=== PATIENT | male | born 1950 | race Caucasian/White ===

== ENCOUNTER 2016-08-08 17:23 | Inpatient (IN) | payer OTHER ==
[~2016-08-08] VITALS: Ht 180.3 cm; Wt 78.6 kg
[~2016-08-08 17:23] MED LIST: ADVAIR HFA120 INHALA IH; ALDACTAZIDE 251 EACH PO; ALKA-SELTZER P1 EAC7 PO; ALTACE10 MG PO; AMARYL1 MG PO; AMARYL2 MG PO; ASPIR 8181 M1 PO; ASPIR-TRIN325 M1 PO; ASPIRIN E.C.81 M1 PO; CARDIZEM CD,CA180 MG PO; CARTIA XT180 MG PO; CEFDINIR300 MG PO; CENTRUM SILVER1 EAC3 PO; CILOSTAZOL100 MG PO; CRESTOR20 MG PO; CRESTOR5 MG PO; CYANOCOBALAM1000 MCG PO; DIOVAN320 MG PO; DUONEB 2.5-0.5 M3 ML AEROSOL; ELIQUIS5 MG PO; ENDOCET 5-3251 EACH PO; EXFORGE 10/31 TABLET PO; FENOFIBRATE160 M1 PO; FISH OIL 1,2001 EAC4 PO; FUROSEMIDE40 MG PO; GABAPENTIN100 MG PO; GABAPENTIN300 MG PO; GLIMEPIRIDE1 MG PO; GLIPIZIDE5 MG PO; HYDROCORTISONE25 MG PO; IRBESARTAN300 MG PO; IRON325 MG PO; KLOR-CON M2020 MEQ PO; LEVEMIR FL100 UNIT/1 SC; LEVEMIR100 UNIT/2 SC; LEVOTHYROXINE100 MCG PO; LEVOTHYROXINE50 MCG PO; LISINOPRIL2.5 MG PO; LOPRESSOR100 M1 PO; LOVAZA1 GM PO; LOW DOSE ASPIRI81 M2 PO; METFORMIN HCL500 MG PO; METOLAZONE2.5 MG PO; METOPROLOL SUC100 MG PO; METOPROLOL TAR100 MG PO; MICRO-K8 ME2 PO; MULTIVITAMIN1 EAC2 PO; NIASPAN,SLO-NI500 MG PO; NIASPAN500 MG PO; PACERONE200 MG PO; PANTOPRAZOLE SO40 MG PO; PLAVIX75 MG PO; PLETAL100 MG PO; PLETAL50 MG PO; POTASSIUM CHLO10 MEQ PO; POTASSIUM CHLOR8 ME3 PO; PREDNISONE10 MG PO; PROTONIX40 MG PO; Pletal PO; RAMIPRIL10 MG PO; RANITIDINE HCL150 MG PO; REQUIP1 MG PO; ROPINIROLE HCL1 MG PO; SPIRIVA RESPIMAT4 GM IH; SPIRONOLACT/HC1 EACH PO; SPIRONOLACTONE25 MG PO; TOPROL XL100 MG PO; TOPROL XL200 MG PO; TYLENOL EXTRA500 MG PO; TYLENOL REGULA325 MG PO; WARFARIN SODIUM2 MG PO; WARFARIN SODIUM5 MG PO
[2016-08-08 18:52] LABS: EOSINOPHIL COUNT 0.1 K/uL (0-0.3); HEMATOCRIT 36.6 % (38.0-50.0); IMMATURE GRANULOCYTE (%) 0.5 % (0.0-0.7); INSTRUMENT ABS NEUTROPHIL CT 3.1 K/uL; LYMPHOCYTE COUNT 0.9 K/uL (1.0-2.8); MCH 32.3 PG (29.0-34.0); MCHC 31.7 G/DL (30.0-36.0); MCV 101.9 FL (86-99); MEAN PLAT.VOLUME 8.8 uM^3 (9.0-12.4); MONOCYTE (%) 7.7 % (3-12); MONOCYTE COUNT 0.3 K/uL (0-0.8); NEUTROPHIL (%) 68.9 % (45-76); NEUTROPHIL COUNT 3.1 K/uL (1.8-6.4); PLATELET COUNT 79 K/uL (156-360); RBC DIS.WIDTH-CV 13.4 % (11.8-14.6); RBC DIS.WIDTH-SD 50.9 % (39-53); RED BLOOD COUNT 3.59 M/uL (4.00-5.50); WHITE BLOOD COUNT 4.4 K/uL (4.1-10.2)
[2016-08-08 19:08] LABS: CHLORIDE 96 mEq/L (99-109); POTASSIUM 3.4 mEq/L (3.7-5.4); SODIUM 139 mEq/L (136-147)
[2016-08-08 19:10] LABS: GLUCOSE 118 mg/dL (70-99)
[2016-08-08 19:11] LABS: ANION GAP 14 MEQ/L (2-14)
[2016-08-08 19:12] LABS: TOTAL BILIRUBIN 0.9 mg/dL (0.0-1.0)
[2016-08-08 19:13] LABS: ALKALINE PHOSPHATASE 54 IU/L (3-129)
[2016-08-08 19:14] LABS: GFR ESTIMATE (CALCULATED) 46 mL/min/
[2016-08-08 19:15] LABS: UREA NITROGEN (BUN) 40 mg/dL (9-23)
[2016-08-08 19:22] LABS: TROP-I INTERPRETATION NEGATIVE; TROPONIN-I 0.01 ng/mL (0.0-0.30)
[2016-08-08] MEDS ORDERED: PROTONIX40 MG PO (23:04)
[2016-08-08] MEDS ORDERED: GLIMEPIRIDE1 MG PO (23:05)
[2016-08-08] MEDS ORDERED: FUROSEMIDE40 MG PO (23:05)
[2016-08-08] MEDS ORDERED: ELIQUIS5 MG PO (23:05)
[2016-08-08] MEDS ORDERED: FISH OIL 1,2001 EAC4 PO (23:06)
[2016-08-08] MEDS ORDERED: IRON325 M1 PO (23:06)
[2016-08-08] MEDS ORDERED: LOPRESSOR100 M1 PO (23:06)
[2016-08-08] MEDS ORDERED: POTASSIUM CHLO20 MEQ PO ×2 (23:07→23:08)
[2016-08-08] MEDS ORDERED: SPIRIVA1 INHALATI IH (23:09)
[2016-08-08] MEDS ORDERED: ADVAIR HFA120 INHALA IH (23:09)
[2016-08-08] MEDS ORDERED: VENTOLIN HFA18 GM IH (23:10)
[2016-08-08] MEDS ORDERED: DUONEB 2.5-0.5 M3 ML AEROSOL ×2 (23:10)
[2016-08-08] MEDS ORDERED: METOLAZONE2.5 MG PO (23:11)
[2016-08-08 23:41] VITALS: BP 131/65
[2016-08-09] VITALS (7 sets, daily range): BP systolic 114–146; BP diastolic 62–83
[2016-08-09 06:45] LABS: HEMATOCRIT 36.9 % (38.0-50.0); MCH 32.1 PG (29.0-34.0); MCHC 31.7 G/DL (30.0-36.0); MCV 101.4 FL (86-99); MEAN PLAT.VOLUME 9.6 uM^3 (9.0-12.4); PLATELET COUNT 74 K/uL (156-360); RBC DIS.WIDTH-CV 13.6 % (11.8-14.6); RBC DIS.WIDTH-SD 51.3 % (39-53); RED BLOOD COUNT 3.64 M/uL (4.00-5.50); WHITE BLOOD COUNT 4.4 K/uL (4.1-10.2)
[2016-08-09 07:18] LABS: ANION GAP 9 MEQ/L (2-14); CHLORIDE 96 MEQ/L (99-109); GFR ESTIMATE (CALCULATED) 54 mL/min/; GLUCOSE 139 mg/dL (70-99); POTASSIUM 3.2 MEQ/L (3.7-5.4); SAMPLE HEMOLYSIS CHECK 0; SAMPLE ICTERIC CHECK 0; SAMPLE LIPEMIA CHECK 0; SODIUM 141 MEQ/L (136-147); UREA NITROGEN (BUN) 35 mg/dL (9-23)
[2016-08-09 17:58] LABS: POINT-OF-CARE USER ID 612031313
[2016-08-09 21:31] LABS: POINT-OF-CARE METER ID UU14188625
[2016-08-10] VITALS: BP 111/69
[2016-08-10 08:03] LABS: POINT-OF-CARE METER ID UU14174225; POINT-OF-CARE USER ID 612031313
[2016-08-10 08:43] VITALS: BP 130/64
[2016-08-10 08:46] LABS: HEMATOCRIT 39.5 % (38.0-50.0); MCH 31.6 PG (29.0-34.0); MCHC 31.4 G/DL (30.0-36.0); MCV 100.8 FL (86-99); MEAN PLAT.VOLUME 9.7 uM^3 (9.0-12.4); PLATELET COUNT 86 K/uL (156-360); RBC DIS.WIDTH-CV 13.5 % (11.8-14.6); RED BLOOD COUNT 3.92 M/uL (4.00-5.50); WHITE BLOOD COUNT 5.1 K/uL (4.1-10.2)
[2016-08-10 09:03] LABS: ANION GAP 11 MEQ/L (2-14); CHLORIDE 100 MEQ/L (99-109); GFR ESTIMATE (CALCULATED) > 59 mL/min/; GLUCOSE 130 mg/dL (70-99); POTASSIUM 3.6 MEQ/L (3.7-5.4); SAMPLE HEMOLYSIS CHECK 0; SAMPLE ICTERIC CHECK 0; SAMPLE LIPEMIA CHECK 0; SODIUM 141 MEQ/L (136-147); UREA NITROGEN (BUN) 28 mg/dL (9-23)
[2016-08-10 15:50] LABS: POINT-OF-CARE METER ID UU14174225
[2016-08-10 16:00] VITALS: BP 139/66
[2016-08-10 23:36] VITALS: BP 117/76
[2016-08-11 06:54] LABS: HEMATOCRIT 35.7 % (38.0-50.0); MCH 31.4 PG (29.0-34.0); MCHC 30.8 G/DL (30.0-36.0); MEAN PLAT.VOLUME 9.1 uM^3 (9.0-12.4); PLATELET COUNT 80 K/uL (156-360); RBC DIS.WIDTH-CV 13.8 % (11.8-14.6); RBC DIS.WIDTH-SD 52.2 % (39-53)
[2016-08-11 07:20] LABS: ANION GAP 6 MEQ/L (2-14); CHLORIDE 101 MEQ/L (99-109); GFR ESTIMATE (CALCULATED) > 59 mL/min/; GLUCOSE 146 mg/dL (70-99); SAMPLE HEMOLYSIS CHECK 0; SAMPLE ICTERIC CHECK 0; SAMPLE LIPEMIA CHECK 0; SODIUM 140 MEQ/L (136-147); UREA NITROGEN (BUN) 23 mg/dL (9-23)
[2016-08-11 08:00] VITALS: BP 123/63
[2016-08-11] MEDS ORDERED: SPIRONOLACTONE25 MG PO (11:46)
[2016-08-11] MEDS ORDERED: LOPRESSOR100 M1 PO (11:46)
[2016-08-11] MEDS ORDERED: POTASSIUM CHLO20 MEQ PO (11:46)
[2016-08-11] MEDS ORDERED: BUMETANIDE1 MG PO (11:53)
== END 2016-08-11 14:50 | disposition home health service (06) | DRG 291 ==
LOC: EME 17:23 → EDOF 21:37 → 5SOUTH 21:37
PROVIDERS: Emergency Medicine; Internal Medicine; Physician Assistant
DX: I11.0 Hypertensive heart disease with heart failure (principal); I50.33 Acute on chronic diastolic (congestive) heart failure; J44.1 Chronic obstructive pulmonary disease with (acute) exacerbation; J96.21 Acute and chronic respiratory failure with hypoxia; N17.9 Acute kidney failure, unspecified; E87.6 Hypokalemia; T50.2X5A Adverse effect of carbonic-anhydrase inhibitors, benzothiadiazides and other diuretics, initial encounter; E11.9 Type 2 diabetes mellitus without complications; I25.10 Atherosclerotic heart disease of native coronary artery without angina pectoris; E03.9 Hypothyroidism, unspecified; D64.9 Anemia, unspecified; E78.5 Hyperlipidemia, unspecified; I48.2 Chronic atrial fibrillation; Z99.81 Dependence on supplemental oxygen; Z95.2 Presence of prosthetic heart valve; Z87.891 Personal history of nicotine dependence; Z79.01 Long term (current) use of anticoagulants; Z95.1 Presence of aortocoronary bypass graft
CPT/HCPCS: 71020; 80048; 80053; 81003; 82948; 83735; 83880; 84443; 84484; 85025; 85027; 93005; 93306; 94640; 94640 76; 94799; 99202; 99281; 99285; J1644; J1815; J1940

== ENCOUNTER 2016-09-07 14:51 | Inpatient (IN) | payer OTHER ==
[~2016-09-07] VITALS: Ht 180.3 cm; Wt 79.8 kg
[~2016-09-07 14:51] MED LIST changes: +BUMETANIDE1 MG PO; +IRON325 M1 PO; +POTASSIUM CHLO20 MEQ PO; +SPIRIVA1 INHALATI IH; +VENTOLIN HFA18 GM IH
[2016-09-07 16:44] LABS: HEMATOCRIT 32.9 % (38.0-50.0); MCH 31.2 PG (29.0-34.0); MCHC 31.9 G/DL (30.0-36.0); MCV 97.6 FL (86-99); MEAN PLAT.VOLUME 9.5 uM^3 (9.0-12.4); PLATELET COUNT 93 K/uL (156-360); RBC DIS.WIDTH-CV 14.5 % (11.8-14.6); RBC DIS.WIDTH-SD 51.7 % (39-53); RED BLOOD COUNT 3.37 M/uL (4.00-5.50); WHITE BLOOD COUNT 5.1 K/uL (4.1-10.2)
[2016-09-07 16:52] LABS: CHLORIDE 97 mEq/L (99-109); POTASSIUM 3.9 mEq/L (3.7-5.4); SODIUM 136 mEq/L (136-147)
[2016-09-07 16:53] LABS: GLUCOSE 198 mg/dL (70-99)
[2016-09-07 16:55] LABS: ANION GAP 13 MEQ/L (2-14)
[2016-09-07 16:57] LABS: GFR ESTIMATE (CALCULATED) 38 mL/min/
[2016-09-07 16:58] LABS: UREA NITROGEN (BUN) 51 mg/dL (9-23)
[2016-09-07 17:03] LABS: TROP-I INTERPRETATION NEGATIVE; TROPONIN-I 0.12 ng/mL (0.0-0.30)
[2016-09-07] MEDS ORDERED: NEURONTIN300 MG PO (17:44)
[2016-09-07] MEDS ORDERED: ALDACTONE25 MG PO (17:49)
[2016-09-07] MEDS ORDERED: BUMEX1 MG PO (17:50)
[2016-09-07 21:16] LABS: D-DIMER ELISA 2.06 mg/L FEU (< 0.57)
[2016-09-07 22:00] VITALS: BP 132/59
[2016-09-07 22:19] LABS: POINT-OF-CARE METER ID UU14174225
[2016-09-07 23:47] VITALS: BP 105/57
[2016-09-08 01:05] LABS: TROP-I INTERPRETATION NEGATIVE; TROPONIN-I 0.13 ng/mL (0.0-0.30)
[2016-09-08 03:39] VITALS: BP 97/55
[2016-09-08 05:58] LABS: HEMATOCRIT 31.9 % (38.0-50.0); MCH 31.1 PG (29.0-34.0); MCV 97.3 FL (86-99); MEAN PLAT.VOLUME 9.3 uM^3 (9.0-12.4); PLATELET COUNT 83 K/uL (156-360); RBC DIS.WIDTH-CV 14.6 % (11.8-14.6); RED BLOOD COUNT 3.28 M/uL (4.00-5.50); WHITE BLOOD COUNT 4.5 K/uL (4.1-10.2)
[2016-09-08 06:25] LABS: ANION GAP 8 MEQ/L (2-14); CHLORIDE 96 MEQ/L (99-109); GFR ESTIMATE (CALCULATED) 38 mL/min/; GLUCOSE 214 mg/dL (70-99); POTASSIUM 3.9 MEQ/L (3.7-5.4); SAMPLE HEMOLYSIS CHECK 0; SAMPLE ICTERIC CHECK 0; SAMPLE LIPEMIA CHECK 0; SODIUM 136 MEQ/L (136-147); UREA NITROGEN (BUN) 53 mg/dL (9-23)
[2016-09-08 07:37] VITALS: BP 109/62
[2016-09-08 08:05] LABS: Estimated Average Glucose 128 mg/dL (70-123); HEMOGLOBIN A1c (GLYCOHEMOGLOB) 6.1 % HGB (Below 5.7)
[2016-09-08 09:31] LABS: TROP-I INTERPRETATION NEGATIVE; TROPONIN-I 0.12 ng/mL (0.0-0.30)
[2016-09-08 09:34] LABS: POINT-OF-CARE METER ID UU14174225
[2016-09-08 13:19] LABS: POINT-OF-CARE METER ID UU14174225
[2016-09-08 15:46] VITALS: BP 108/54
[2016-09-08 15:50] VITALS: BP 103/61
[2016-09-08 20:09] VITALS: BP 110/53
[2016-09-08 21:49] LABS: POINT-OF-CARE METER ID UU14188625
[2016-09-08 23:37] VITALS: BP 100/57
[2016-09-09 03:28] VITALS: BP 112/58
[2016-09-09 07:14] LABS: EOSINOPHIL (%) 1.7 % (0-5); EOSINOPHIL COUNT 0.1 K/uL (0-0.3); HEMATOCRIT 32.3 % (38.0-50.0); IMMATURE GRANULOCYTE (%) 0.6 % (0.0-0.7); INSTRUMENT ABS NEUTROPHIL CT 4.2 K/uL; LYMPHOCYTE COUNT 0.7 K/uL (1.0-2.8); MCH 31.4 PG (29.0-34.0); MCHC 32.2 G/DL (30.0-36.0); MCV 97.6 FL (86-99); MEAN PLAT.VOLUME 9.6 uM^3 (9.0-12.4); MONOCYTE (%) 7.4 % (3-12); MONOCYTE COUNT 0.4 K/uL (0-0.8); NEUTROPHIL (%) 76.6 % (45-76); NEUTROPHIL COUNT 4.2 K/uL (1.8-6.4); PLATELET COUNT 78 K/uL (156-360); RBC DIS.WIDTH-CV 14.6 % (11.8-14.6); RBC DIS.WIDTH-SD 52.3 % (39-53); RED BLOOD COUNT 3.31 M/uL (4.00-5.50); WHITE BLOOD COUNT 5.4 K/uL (4.1-10.2)
[2016-09-09 07:38] LABS: ANION GAP 9 MEQ/L (2-14); CHLORIDE 95 MEQ/L (99-109); GFR ESTIMATE (CALCULATED) 50 mL/min/; GLUCOSE 157 mg/dL (70-99); SAMPLE HEMOLYSIS CHECK 0; SAMPLE ICTERIC CHECK 0; SAMPLE LIPEMIA CHECK 0; SODIUM 133 MEQ/L (136-147); UREA NITROGEN (BUN) 51 mg/dL (9-23); URIC ACID 13.7 mg/dL (3.1-9.2)
[2016-09-09 07:53] LABS: POINT-OF-CARE METER ID UU14188625
[2016-09-09 08:11] VITALS: BP 99/53
[2016-09-09 11:16] VITALS: BP 128/67
[2016-09-09 13:24] VITALS: BP 106/65
[2016-09-09 15:29] VITALS: BP 134/63
[2016-09-09 16:28] LABS: POINT-OF-CARE METER ID UU14188625
[2016-09-09 20:02] VITALS: BP 109/53
[2016-09-09 21:35] LABS: POINT-OF-CARE METER ID UU14174225
[2016-09-10] VITALS (7 sets, daily range): BP systolic 107–142; BP diastolic 57–69
[2016-09-10 07:41] LABS: EOSINOPHIL COUNT 0.1 K/uL (0-0.3); HEMATOCRIT 29.8 % (38.0-50.0); IMMATURE GRANULOCYTE (%) 0.6 % (0.0-0.7); LYMPHOCYTE COUNT 0.6 K/uL (1.0-2.8); MCH 30.6 PG (29.0-34.0); MCHC 31.5 G/DL (30.0-36.0); MCV 97.1 FL (86-99); MEAN PLAT.VOLUME 9.7 uM^3 (9.0-12.4); MONOCYTE (%) 7.3 % (3-12); MONOCYTE COUNT 0.4 K/uL (0-0.8); NEUTROPHIL (%) 78.1 % (45-76); PLATELET COUNT 80 K/uL (156-360); RBC DIS.WIDTH-SD 52.6 % (39-53); RED BLOOD COUNT 3.07 M/uL (4.00-5.50); WHITE BLOOD COUNT 5.1 K/uL (4.1-10.2)
[2016-09-10 08:00] LABS: POINT-OF-CARE METER ID UU14174225
[2016-09-10 08:03] LABS: ANION GAP 10 MEQ/L (2-14); CHLORIDE 95 MEQ/L (99-109); GFR ESTIMATE (CALCULATED) > 59 mL/min/; GLUCOSE 184 mg/dL (70-99); POTASSIUM 3.4 MEQ/L (3.7-5.4); SAMPLE HEMOLYSIS CHECK 0; SAMPLE ICTERIC CHECK 0; SAMPLE LIPEMIA CHECK 0; SODIUM 133 MEQ/L (136-147); UREA NITROGEN (BUN) 43 mg/dL (9-23)
[2016-09-10 11:45] LABS: POINT-OF-CARE METER ID UU14188625
[2016-09-10 16:21] LABS: POINT-OF-CARE METER ID UU14188625
[2016-09-11 04:06] VITALS: BP 131/65
[2016-09-11 07:24] LABS: ANION GAP 10 MEQ/L (2-14); CHLORIDE 94 MEQ/L (99-109); GFR ESTIMATE (CALCULATED) 50 mL/min/; GLUCOSE 182 mg/dL (70-99); POTASSIUM 3.9 MEQ/L (3.7-5.4); SAMPLE HEMOLYSIS CHECK 0; SAMPLE ICTERIC CHECK 0; SAMPLE LIPEMIA CHECK 0; SODIUM 131 MEQ/L (136-147); UREA NITROGEN (BUN) 49 mg/dL (9-23)
[2016-09-11 07:40] LABS: HEMATOCRIT 32.3 % (38.0-50.0); MCH 31.2 PG (29.0-34.0); MCHC 31.9 G/DL (30.0-36.0); MCV 97.9 FL (86-99); MEAN PLAT.VOLUME 9.4 uM^3 (9.0-12.4); PLATELET COUNT 86 K/uL (156-360); RBC DIS.WIDTH-CV 15.4 % (11.8-14.6); RBC DIS.WIDTH-SD 53.3 % (39-53); WHITE BLOOD COUNT 5.8 K/uL (4.1-10.2)
[2016-09-11 08:04] VITALS: BP 125/66
[2016-09-11 10:16] LABS: BASE EXCESS 1.9 mEq/L (-3 to +3); BICARBONATE 26.6 mEq/L (22-26); CARBOXY HGB 2.9 % (0-5); COMMENTS - BLOOD GASES A+C+; METHEMOGLOBIN 1.7 % (0-1.5); PCO2 41 mm Hg (35-45); PO2 60 mm Hg (80-100); SITE LR; pH 7.42 (7.35-7.45)
[2016-09-11 10:17] LABS: DEVICE NCH; O2 FLOW 10 L/MIN
[2016-09-11 11:59] LABS: POINT-OF-CARE METER ID UU14188625
[2016-09-11 12:04] VITALS: BP 127/68
[2016-09-11 16:02] VITALS: BP 118/58
[2016-09-11 16:28] LABS: POINT-OF-CARE METER ID UU14174225
[2016-09-11 20:25] VITALS: BP 140/63
[2016-09-11 21:36] LABS: POINT-OF-CARE METER ID UU14188625
[2016-09-12] VITALS: BP 125/58
[2016-09-12 04:03] VITALS: BP 114/54
[2016-09-12 07:39] LABS: POINT-OF-CARE METER ID UU14174225
[2016-09-12 07:40] LABS: EOSINOPHIL (%) 1.8 % (0-5); EOSINOPHIL COUNT 0.1 K/uL (0-0.3); HEMATOCRIT 34.4 % (38.0-50.0); IMMATURE GRANULOCYTE (%) 0.8 % (0.0-0.7); IMMATURE GRANULOCYTE COUNT 0.1 K/uL; INSTRUMENT ABS NEUTROPHIL CT 4.8 K/uL; LYMPHOCYTE COUNT 0.7 K/uL (1.0-2.8); MCH 31.1 PG (29.0-34.0); MCHC 31.7 G/DL (30.0-36.0); MCV 98.3 FL (86-99); MEAN PLAT.VOLUME 9.4 uM^3 (9.0-12.4); MONOCYTE (%) 7.6 % (3-12); MONOCYTE COUNT 0.5 K/uL (0-0.8); NEUTROPHIL (%) 78.4 % (45-76); NEUTROPHIL COUNT 4.8 K/uL (1.8-6.4); PLATELET COUNT 85 K/uL (156-360); RBC DIS.WIDTH-CV 15.8 % (11.8-14.6); RBC DIS.WIDTH-SD 54.3 % (39-53); WHITE BLOOD COUNT 6.1 K/uL (4.1-10.2)
[2016-09-12 08:03] VITALS: BP 108/58
[2016-09-12 08:04] LABS: ANION GAP 9 MEQ/L (2-14); CHLORIDE 97 MEQ/L (99-109); GFR ESTIMATE (CALCULATED) 54 mL/min/; GLUCOSE 162 mg/dL (70-99); POTASSIUM 3.8 MEQ/L (3.7-5.4); SAMPLE HEMOLYSIS CHECK 0; SAMPLE ICTERIC CHECK 0; SAMPLE LIPEMIA CHECK 0; SODIUM 132 MEQ/L (136-147); UREA NITROGEN (BUN) 48 mg/dL (9-23)
[2016-09-12 11:43] VITALS: BP 107/59
[2016-09-12 16:01] VITALS: BP 125/58
[2016-09-12 16:38] LABS: POINT-OF-CARE METER ID UU14174225
[2016-09-12 19:31] VITALS: BP 132/62
[2016-09-12 21:01] LABS: POINT-OF-CARE METER ID UU14188625
[2016-09-13 00:05] VITALS: BP 114/59
[2016-09-13 04:00] VITALS: BP 126/58
[2016-09-13 06:31] LABS: ANION GAP 11 MEQ/L (2-14); CHLORIDE 96 MEQ/L (99-109); GFR ESTIMATE (CALCULATED) 54 mL/min/; GLUCOSE 176 mg/dL (70-99); POTASSIUM 3.5 MEQ/L (3.7-5.4); SAMPLE HEMOLYSIS CHECK 0; SAMPLE ICTERIC CHECK 0; SAMPLE LIPEMIA CHECK 0; SODIUM 136 MEQ/L (136-147); UREA NITROGEN (BUN) 51 mg/dL (9-23)
[2016-09-13 07:51] VITALS: BP 108/53
[2016-09-13 10:32] LABS: INTER. NORMALIZED RATIO 1.4; PROTHROMBIN TIME 14.5 (9.2-11.2); PTT 32.2 (25-32)
[2016-09-13 11:41] LABS: POINT-OF-CARE METER ID UU14188625
[2016-09-13 12:03] VITALS: BP 105/55
[2016-09-13 15:56] VITALS: BP 124/63
[2016-09-13 16:47] LABS: POINT-OF-CARE METER ID UU14188625
[2016-09-13 20:00] VITALS: BP 116/55
[2016-09-14] VITALS: BP 128/60
[2016-09-14 03:46] VITALS: BP 108/57
[2016-09-14 07:22] LABS: ANION GAP 10 MEQ/L (2-14); CHLORIDE 96 MEQ/L (99-109); GFR ESTIMATE (CALCULATED) 54 mL/min/; GLUCOSE 168 mg/dL (70-99); POTASSIUM 3.7 MEQ/L (3.7-5.4); SAMPLE HEMOLYSIS CHECK 0; SAMPLE ICTERIC CHECK 0; SAMPLE LIPEMIA CHECK 0; SODIUM 135 MEQ/L (136-147); UREA NITROGEN (BUN) 50 mg/dL (9-23)
[2016-09-14 07:29] VITALS: BP 113/57
[2016-09-14 07:33] LABS: POINT-OF-CARE METER ID UU14188625
[2016-09-14 11:25] LABS: TYPE OF FLUID PLEURAL
[2016-09-14 11:54] VITALS: BP 138/84
[2016-09-14 12:38] LABS: BODY FLUID EOSINOPHILS 0 % (0-25); BODY FLUID RBC'S 5000 /MM^3 (0-100); BODY FLUID WBC'S 231 /MM^3 (0-500); MONONUCLEAR WBC'S 73 %; POLYNUCLEAR WBC'S 27 % (0-25)
[2016-09-14 13:19] LABS: BODY FLUID LDH 78 IU/L; BODY FLUID PROTEIN < 3.0 G/DL
[2016-09-14 15:20] VITALS: BP 157/64
[2016-09-14 19:36] VITALS: BP 110/53
[2016-09-15] VITALS: BP 130/64
[2016-09-15 04:00] VITALS: BP 98/57
[2016-09-15 06:01] LABS: ANION GAP 9 MEQ/L (2-14); CHLORIDE 99 MEQ/L (99-109); GFR ESTIMATE (CALCULATED) 54 mL/min/; GLUCOSE 191 mg/dL (70-99); POTASSIUM 3.6 MEQ/L (3.7-5.4); SAMPLE HEMOLYSIS CHECK 0; SAMPLE ICTERIC CHECK 0; SAMPLE LIPEMIA CHECK 0; SODIUM 137 MEQ/L (136-147); UREA NITROGEN (BUN) 50 mg/dL (9-23)
[2016-09-15 07:48] LABS: POINT-OF-CARE METER ID UU14174225
[2016-09-15 07:55] VITALS: BP 125/94
[2016-09-15 11:13] VITALS: BP 137/63
[2016-09-15 11:15] LABS: POINT-OF-CARE METER ID UU14188625
[2016-09-15] MEDS ORDERED: POTASSIUM CHLO20 MEQ PO (12:35)
[2016-09-15] MEDS ORDERED: METOPROLOL TAR100 MG PO (13:43)
[2016-09-15] MEDS ORDERED: METOPROLOL TART25 MG PO ×2 (13:43→13:47)
[2016-09-15 14:39] VITALS: BP 121/56
== END 2016-09-15 15:08 | disposition home or self-care (01) | DRG 291 ==
LOC: EME 14:51 → 5SOUTH 20:11 → EDOF 20:11 → 5SOUTH 21:41
PROVIDERS: Hospitalist; Internal Medicine; Internal Medicine Nephrology
DX: I50.23 Acute on chronic systolic (congestive) heart failure (principal); N17.9 Acute kidney failure, unspecified; D69.6 Thrombocytopenia, unspecified; J90 Pleural effusion, not elsewhere classified; Z79.4 Long term (current) use of insulin; N18.3 Chronic kidney disease, stage 3 (moderate); E03.9 Hypothyroidism, unspecified; D50.9 Iron deficiency anemia, unspecified; I12.9 Hypertensive chronic kidney disease with stage 1 through stage 4 chronic kidney disease, or unspecified chronic kidney disease; E11.9 Type 2 diabetes mellitus without complications; I27.2 Other secondary pulmonary hypertension; I25.5 Ischemic cardiomyopathy; J96.21 Acute and chronic respiratory failure with hypoxia; I25.10 Atherosclerotic heart disease of native coronary artery without angina pectoris; E87.6 Hypokalemia; I48.92 Unspecified atrial flutter; E79.0 Hyperuricemia without signs of inflammatory arthritis and tophaceous disease; R09.02 Hypoxemia; I73.9 Peripheral vascular disease, unspecified; G25.81 Restless legs syndrome; K27.9 Peptic ulcer, site unspecified, unspecified as acute or chronic, without hemorrhage or perforation; Z95.2 Presence of prosthetic heart valve; Z95.1 Presence of aortocoronary bypass graft; Z87.891 Personal history of nicotine dependence; Z99.81 Dependence on supplemental oxygen; R07.9 Chest pain, unspecified
CPT/HCPCS: 36415; 36600; 71010; 71020; 76705; 76770; 78582; 80048; 80069; 82436; 82570; 82803; 82945; 82948; 83036; 83615; 83615 91; 83880; 84133; 84156; 84157; 84300; 84484; 84550; 85025; 85027; 85379; 85610; 85730; 87070; 87075; 87205; 88108; 89051; 93005; 94640; 94640 76; 94760; 94799; 99202; 99281; 99285; A9540; A9567; J1815; J1940

== ENCOUNTER 2016-10-19 22:31 | Inpatient (IN) | payer OTHER ==
[~2016-10-19] VITALS: Ht 175.3 cm; Wt 83.6 kg
[~2016-10-19 22:31] MED LIST changes: +ALDACTONE25 MG PO; +BUMEX1 MG PO; +METOPROLOL TART25 MG PO; +NEURONTIN300 MG PO
[2016-10-19 23:32] LABS: HEMATOCRIT 34.5 % (38.0-50.0); MCH 31.8 PG (29.0-34.0); MCV 102.7 FL (86-99); MEAN PLAT.VOLUME 8.7 uM^3 (9.0-12.4); PLATELET COUNT 70 K/uL (156-360); RBC DIS.WIDTH-CV 18.5 % (11.8-14.6); RBC DIS.WIDTH-SD 70.4 % (39-53); RED BLOOD COUNT 3.36 M/uL (4.00-5.50); WHITE BLOOD COUNT 4.5 K/uL (4.1-10.2)
[2016-10-19 23:37] LABS: BASE EXCESS 13.4 mEq/L (-3 to +3); CARBOXY HGB 2.7 % (0-5); METHEMOGLOBIN 0.7 % (0-1.5); PCO2 45 mm Hg (35-45); PO2 64 mm Hg (80-100)
[2016-10-19 23:39] LABS: BICARBONATE 37.6 mEq/L (22-26); COMMENTS - BLOOD GASES A+C+; DEVICE HHFNC; FI02 60 %; O2 FLOW 40 L/MIN; SITE RR; TOTAL RESP RATE 21 resp/min; pH 7.53 (7.35-7.45)
[2016-10-19 23:40] LABS: CHLORIDE 97 mEq/L (99-109); SODIUM 140 mEq/L (136-147)
[2016-10-19 23:42] LABS: GLUCOSE 143 mg/dL (70-99); POTASSIUM 4.3 mEq/L (3.7-5.4)
[2016-10-19 23:43] LABS: ANION GAP 10 MEQ/L (2-14)
[2016-10-19 23:46] LABS: GFR ESTIMATE (CALCULATED) 38 mL/min/; INTER. NORMALIZED RATIO 1.4; PROTHROMBIN TIME 14.3 (9.2-11.2); PTT 29.9 (25-32); UREA NITROGEN (BUN) 57 mg/dL (9-23)
[2016-10-19 23:56] LABS: TROP-I INTERPRETATION NEGATIVE; TROPONIN-I 0.08 ng/mL (0.0-0.30)
[2016-10-20] MEDS ORDERED: KLOR-CON20 MEQ PO (00:39)
[2016-10-20] MEDS ORDERED: TRAZODONE HCL50 MG PO (00:40)
[2016-10-20] MEDS ORDERED: DIGOXIN125 MCG PO (00:40)
[2016-10-20] MEDS ORDERED: BUMEX2 MG PO ×2 (00:40)
[2016-10-20 04:41] VITALS: BP 109/55
[2016-10-20 04:43] VITALS: BP 109/55
[2016-10-20 06:29] LABS: TROP-I INTERPRETATION NEGATIVE; TROPONIN-I 0.09 ng/mL (0.0-0.30)
[2016-10-20 07:46] VITALS: BP 104/60
[2016-10-20 09:16] LABS: HEMATOCRIT 36.3 % (38.0-50.0); MCH 32.5 PG (29.0-34.0); MCHC 31.1 G/DL (30.0-36.0); MCV 104.3 FL (86-99); MEAN PLAT.VOLUME 9.4 uM^3 (9.0-12.4); PLATELET COUNT 65 K/uL (156-360); RBC DIS.WIDTH-CV 18.6 % (11.8-14.6); RBC DIS.WIDTH-SD 71.3 % (39-53); RED BLOOD COUNT 3.48 M/uL (4.00-5.50); WHITE BLOOD COUNT 4.4 K/uL (4.1-10.2)
[2016-10-20 09:55] LABS: ANION GAP 11 MEQ/L (2-14); CHLORIDE 97 MEQ/L (99-109); GFR ESTIMATE (CALCULATED) 46 mL/min/; SAMPLE HEMOLYSIS CHECK 0; SAMPLE ICTERIC CHECK 0; SAMPLE LIPEMIA CHECK 0; SODIUM 140 MEQ/L (136-147); UREA NITROGEN (BUN) 55 mg/dL (9-23)
[2016-10-20 09:56] LABS: GLUCOSE 105 mg/dL (70-99); POTASSIUM 3.2 MEQ/L (3.7-5.4)
[2016-10-20 11:29] VITALS: BP 101/58
[2016-10-20 11:56] LABS: TROP-I INTERPRETATION NEGATIVE; TROPONIN-I 0.08 ng/mL (0.0-0.30)
[2016-10-20 15:31] VITALS: BP 111/56
[2016-10-20 19:15] VITALS: BP 104/51
[2016-10-21] VITALS (7 sets, daily range): BP systolic 100–114; BP diastolic 51–70
[2016-10-21 06:50] LABS: ANION GAP 9 MEQ/L (2-14); CHLORIDE 96 MEQ/L (99-109); GFR ESTIMATE (CALCULATED) 46 mL/min/; GLUCOSE 100 mg/dL (70-99); POTASSIUM 2.8 MEQ/L (3.7-5.4); SAMPLE HEMOLYSIS CHECK 0; SAMPLE ICTERIC CHECK 0; SAMPLE LIPEMIA CHECK 0; SODIUM 140 MEQ/L (136-147); UREA NITROGEN (BUN) 52 mg/dL (9-23)
[2016-10-21 07:47] LABS: MAGNESIUM 2.1 mg/dl (1.3-2.7)
[2016-10-22 04:32] VITALS: BP 109/55
[2016-10-22 07:43] VITALS: BP 111/55
[2016-10-22 08:12] LABS: HEMATOCRIT 33.5 % (38.0-50.0); MCH 32.1 PG (29.0-34.0); MCV 103.4 FL (86-99); MEAN PLAT.VOLUME 8.7 uM^3 (9.0-12.4); PLATELET COUNT 60 K/uL (156-360); RBC DIS.WIDTH-CV 18.2 % (11.8-14.6); RBC DIS.WIDTH-SD 70.4 % (39-53); RED BLOOD COUNT 3.24 M/uL (4.00-5.50); WHITE BLOOD COUNT 4.7 K/uL (4.1-10.2)
[2016-10-22 08:40] LABS: ANION GAP 10 MEQ/L (2-14); CHLORIDE 97 MEQ/L (99-109); GFR ESTIMATE (CALCULATED) 46 mL/min/; GLUCOSE 117 mg/dL (70-99); SAMPLE HEMOLYSIS CHECK 0; SAMPLE ICTERIC CHECK 0; SAMPLE LIPEMIA CHECK 0; SODIUM 140 MEQ/L (136-147); UREA NITROGEN (BUN) 51 mg/dL (9-23)
[2016-10-22 12:10] VITALS: BP 103/58
[2016-10-22 16:14] VITALS: BP 136/64
[2016-10-22 20:56] VITALS: BP 110/55
[2016-10-23 00:19] VITALS: BP 101/57
[2016-10-23 04:57] VITALS: BP 121/56
[2016-10-23 05:42] LABS: HEMATOCRIT 32.7 % (38.0-50.0); MCH 31.8 PG (29.0-34.0); MCHC 30.9 G/DL (30.0-36.0); MCV 102.8 FL (86-99); MEAN PLAT.VOLUME 8.7 uM^3 (9.0-12.4); PLATELET COUNT 63 K/uL (156-360); RBC DIS.WIDTH-SD 68.6 % (39-53); RED BLOOD COUNT 3.18 M/uL (4.00-5.50); WHITE BLOOD COUNT 3.4 K/uL (4.1-10.2)
[2016-10-23 06:05] LABS: ANION GAP 9 MEQ/L (2-14); CHLORIDE 98 MEQ/L (99-109); GFR ESTIMATE (CALCULATED) 50 mL/min/; GLUCOSE 113 mg/dL (70-99); POTASSIUM 2.9 MEQ/L (3.7-5.4); SAMPLE HEMOLYSIS CHECK 0; SAMPLE ICTERIC CHECK 0; SAMPLE LIPEMIA CHECK 0; SODIUM 141 MEQ/L (136-147); UREA NITROGEN (BUN) 52 mg/dL (9-23)
[2016-10-23 07:14] VITALS: BP 118/62
[2016-10-23 09:53] LABS: POINT-OF-CARE METER ID UU13113698
[2016-10-23] MEDS ORDERED: LASIX80 MG PO (10:21)
[2016-10-23 11:13] VITALS: BP 103/58
[2016-10-23 14:28] LABS: POINT-OF-CARE METER ID UU13113698
== END 2016-10-23 15:21 | disposition home health service (06) | DRG 291 ==
LOC: EME 22:31 → 4EAST 10-20 00:53 → EDOF 10-20 00:53 → 4EAST 10-20 04:16
PROVIDERS: Emergency Medicine; Internal Medicine; Internal Medicine Cardiovascular Disease
PROC: 0W993ZZ Drainage of Right Pleural Cavity, Percutaneous Approach (ICD-10-PCS; principal; 2016-10-21)
DX: I50.23 Acute on chronic systolic (congestive) heart failure (principal); J96.01 Acute respiratory failure with hypoxia; I27.2 Other secondary pulmonary hypertension; J44.9 Chronic obstructive pulmonary disease, unspecified; E11.40 Type 2 diabetes mellitus with diabetic neuropathy, unspecified; I48.2 Chronic atrial fibrillation; D50.9 Iron deficiency anemia, unspecified; I25.10 Atherosclerotic heart disease of native coronary artery without angina pectoris; E03.9 Hypothyroidism, unspecified; N28.9 Disorder of kidney and ureter, unspecified; I25.5 Ischemic cardiomyopathy; K21.9 Gastro-esophageal reflux disease without esophagitis; E78.5 Hyperlipidemia, unspecified; E87.6 Hypokalemia; F32.9 Major depressive disorder, single episode, unspecified; I08.3 Combined rheumatic disorders of mitral, aortic and tricuspid valves; I11.0 Hypertensive heart disease with heart failure; N50.89 Other specified disorders of the male genital organs; I48.92 Unspecified atrial flutter; Z95.1 Presence of aortocoronary bypass graft; Z95.2 Presence of prosthetic heart valve; Z99.81 Dependence on supplemental oxygen; Z87.891 Personal history of nicotine dependence; Z79.01 Long term (current) use of anticoagulants; I25.2 Old myocardial infarction
CPT/HCPCS: 36415; 36600; 71010; 80048; 81003; 82803; 82948; 83605; 83735; 83880; 84132 91; 84484; 85027; 85610; 85730; 87040; 93005; 94640; 94640 76; 94760; 94799; 99202; 99281; 99285; J1815; J1940; J3480

== ENCOUNTER 2016-11-08 11:00 | Inpatient (IN) | payer OTHER ==
[~2016-11-08] VITALS: Ht 180.3 cm; Wt 77.2 kg
[~2016-11-08 11:00] MED LIST changes: +BUMEX2 MG PO; +DIGOXIN125 MCG PO; +KLOR-CON20 MEQ PO; +LASIX80 MG PO; +TRAZODONE HCL50 MG PO
[2016-11-08 12:24] LABS: EOSINOPHIL (%) 1.5 % (0-5); EOSINOPHIL COUNT 0.1 K/uL (0-0.3); HEMATOCRIT 42.6 % (38.0-50.0); IMMATURE GRANULOCYTE (%) 0.7 % (0.0-0.7); IMMATURE GRANULOCYTE COUNT 0.1 K/uL; INSTRUMENT ABS NEUTROPHIL CT 5.3 K/uL; MCH 32.1 PG (29.0-34.0); MCHC 30.3 G/DL (30.0-36.0); MEAN PLAT.VOLUME 9.2 uM^3 (9.0-12.4); MONOCYTE (%) 6.6 % (3-12); MONOCYTE COUNT 0.5 K/uL (0-0.8); NEUTROPHIL (%) 76.5 % (45-76); NEUTROPHIL COUNT 5.3 K/uL (1.8-6.4); PLATELET COUNT 74 K/uL (156-360); RBC DIS.WIDTH-CV 16.9 % (11.8-14.6); RBC DIS.WIDTH-SD 66.1 % (39-53); RED BLOOD COUNT 4.02 M/uL (4.00-5.50); WHITE BLOOD COUNT 6.9 K/uL (4.1-10.2)
[2016-11-08 12:33] LABS: INTER. NORMALIZED RATIO 1.4; PROTHROMBIN TIME 14.6 (9.2-11.2); PTT 29.4 (25-32)
[2016-11-08 12:45] LABS: TROP-I INTERPRETATION NEGATIVE; TROPONIN-I 0.04 ng/mL (0.0-0.30)
[2016-11-08 14:38] LABS: CHLORIDE 107 mEq/L (99-109); SODIUM 142 mEq/L (136-147)
[2016-11-08 14:40] LABS: GLUCOSE 140 mg/dL (70-99)
[2016-11-08 14:42] LABS: ANION GAP 10 MEQ/L (2-14); DIGOXIN 0.5 ng/mL (0.8-2.0); TOTAL BILIRUBIN 1.4 mg/dL (0.0-1.0)
[2016-11-08 14:44] LABS: ALKALINE PHOSPHATASE 68 IU/L (3-129)
[2016-11-08 14:58] LABS: POTASSIUM 6.6 mEq/L (3.7-5.4)
[2016-11-08 15:03] LABS: GFR ESTIMATE (CALCULATED) 43 mL/min/; UREA NITROGEN (BUN) 33 mg/dL (9-23)
[2016-11-08] MEDS ORDERED: LASIX40 MG PO (17:25)
[2016-11-08] MEDS ORDERED: KLOR-CON M2020 MEQ PO (17:27)
[2016-11-08] MEDS ORDERED: SPIRIVA RESPIMAT4 GM IH (17:29)
[2016-11-08] MEDS ORDERED: SPIRONOLACTONE25 MG PO (17:30)
[2016-11-08] MEDS ORDERED: PANTOPRAZOLE SO40 MG PO (17:30)
[2016-11-08 17:43] VITALS: BP 126/61
[2016-11-08 18:36] LABS: TROP-I INTERPRETATION NEGATIVE; TROPONIN-I 0.06 ng/mL (0.0-0.30)
[2016-11-08 19:32] VITALS: BP 112/72
[2016-11-08 23:25] LABS: POINT-OF-CARE METER ID UU13113781
[2016-11-09] VITALS (7 sets, daily range): BP systolic 107–139; BP diastolic 50–68
[2016-11-09 01:21] LABS: TROP-I INTERPRETATION NEGATIVE; TROPONIN-I 0.04 ng/mL (0.0-0.30)
[2016-11-09 06:04] LABS: POINT-OF-CARE METER ID UU13113781
[2016-11-09 13:42] LABS: ANION GAP 8 MEQ/L (2-14); CHLORIDE 101 MEQ/L (99-109); GFR ESTIMATE (CALCULATED) 50 mL/min/; GLUCOSE 94 mg/dL (70-99); MAGNESIUM 2.3 mg/dl (1.3-2.7); POTASSIUM 3.9 MEQ/L (3.7-5.4); SAMPLE HEMOLYSIS CHECK 0; SAMPLE ICTERIC CHECK 0; SAMPLE LIPEMIA CHECK 0; SODIUM 139 MEQ/L (136-147); UREA NITROGEN (BUN) 29 mg/dL (9-23)
[2016-11-09 15:54] LABS: POINT-OF-CARE METER ID UU13113781
[2016-11-09 18:14] LABS: INTER. NORMALIZED RATIO 1.4; PROTHROMBIN TIME 14.2 (9.2-11.2); PTT 27.9 (25-32)
[2016-11-10 03:09] VITALS: BP 104/49
[2016-11-10 07:10] VITALS: BP 128/61
[2016-11-10 07:49] LABS: EOSINOPHIL (%) 1.8 % (0-5); EOSINOPHIL COUNT 0.1 K/uL (0-0.3); HEMATOCRIT 33.1 % (38.0-50.0); IMMATURE GRANULOCYTE (%) 0.5 % (0.0-0.7); INSTRUMENT ABS NEUTROPHIL CT 2.6 K/uL; MCH 32.4 PG (29.0-34.0); MCHC 31.1 G/DL (30.0-36.0); MCV 104.1 FL (86-99); MONOCYTE (%) 8.1 % (3-12); MONOCYTE COUNT 0.3 K/uL (0-0.8); NEUTROPHIL COUNT 2.6 K/uL (1.8-6.4); RBC DIS.WIDTH-CV 16.2 % (11.8-14.6); RBC DIS.WIDTH-SD 62.6 % (39-53); RED BLOOD COUNT 3.18 M/uL (4.00-5.50)
[2016-11-10 07:53] LABS: POINT-OF-CARE METER ID UU13113781
[2016-11-10 07:54] LABS: IMM.PLATELET FRACTION 1.6 (1-7); MEAN PLAT.VOLUME 9.7 uM^3 (9.0-12.4); PLAT.SUFFICIENCY DECREASED
[2016-11-10 08:05] LABS: PLATELET COUNT 50 K/uL (156-360)
[2016-11-10 08:16] LABS: ANION GAP 12 MEQ/L (2-14); CHLORIDE 97 MEQ/L (99-109); POTASSIUM 3.4 MEQ/L (3.7-5.4); SAMPLE HEMOLYSIS CHECK 0; SAMPLE ICTERIC CHECK 0; SAMPLE LIPEMIA CHECK 0; SODIUM 137 MEQ/L (136-147)
[2016-11-10 10:09] LABS: GFR ESTIMATE (CALCULATED) 40 mL/min/; GLUCOSE 113 mg/dL (70-99); UREA NITROGEN (BUN) 32 mg/dL (9-23)
[2016-11-10 12:00] VITALS: BP 104/48
[2016-11-10 16:10] LABS: POINT-OF-CARE METER ID UU14174216
[2016-11-10 16:20] VITALS: BP 119/58
[2016-11-10 19:30] VITALS: BP 145/66
[2016-11-10 21:14] LABS: BASE EXCESS 7.1 mEq/L (-3 to +3); METHEMOGLOBIN 1.8 % (0-1.5); PCO2 46 mm Hg (35-45); pH 7.45 (7.35-7.45)
[2016-11-10 21:15] LABS: PO2 43 mm Hg (80-100); SITE LR
[2016-11-10 21:18] LABS: POINT-OF-CARE METER ID UU14174216
[2016-11-10 21:19] LABS: DEVICE HFNC; O2 FLOW 15 L/MIN; TOTAL RESP RATE 18 resp/min
[2016-11-11] VITALS (8 sets, daily range): BP systolic 103–139; BP diastolic 54–65
[2016-11-11 04:44] LABS: HEMATOCRIT 30.8 % (38.0-50.0); MCH 31.9 PG (29.0-34.0); MCHC 31.2 G/DL (30.0-36.0); MCV 102.3 FL (86-99); RBC DIS.WIDTH-CV 15.9 % (11.8-14.6); RBC DIS.WIDTH-SD 60.7 % (39-53); RED BLOOD COUNT 3.01 M/uL (4.00-5.50); WHITE BLOOD COUNT 3.4 K/uL (4.1-10.2)
[2016-11-11 04:58] LABS: CHLORIDE 101 mEq/L (99-109); SODIUM 138 mEq/L (136-147)
[2016-11-11 05:00] LABS: GLUCOSE 143 mg/dL (70-99)
[2016-11-11 05:01] LABS: ANION GAP 9 MEQ/L (2-14)
[2016-11-11 05:03] LABS: GFR ESTIMATE (CALCULATED) 46 mL/min/
[2016-11-11 05:04] LABS: UREA NITROGEN (BUN) 29 mg/dL (9-23)
[2016-11-11 05:14] LABS: POTASSIUM 4.2 mEq/L (3.7-5.4)
[2016-11-11 05:24] LABS: MEAN PLAT.VOLUME 8.8 uM^3 (9.0-12.4); PLATELET COUNT 43 K/uL (156-360)
[2016-11-11 05:26] LABS: PLAT.SUFFICIENCY VERY DECREASED
[2016-11-11 07:57] LABS: POINT-OF-CARE METER ID UU13113698
[2016-11-11 11:07] LABS: POINT-OF-CARE METER ID UU13113698
[2016-11-11 20:46] LABS: POINT-OF-CARE METER ID UU14174216; POINT-OF-CARE USER ID ENVMNS
[2016-11-12 05:05] VITALS: BP 129/60
[2016-11-12 06:36] LABS: ANION GAP 6 MEQ/L (2-14); CHLORIDE 98 MEQ/L (99-109); GFR ESTIMATE (CALCULATED) 46 mL/min/; GLUCOSE 129 mg/dL (70-99); POTASSIUM 4.5 MEQ/L (3.7-5.4); SAMPLE HEMOLYSIS CHECK 0; SAMPLE ICTERIC CHECK 0; SAMPLE LIPEMIA CHECK 0; SODIUM 135 MEQ/L (136-147); UREA NITROGEN (BUN) 30 mg/dL (9-23)
[2016-11-12 07:42] VITALS: BP 126/63
[2016-11-12 07:48] LABS: POINT-OF-CARE METER ID UU14174216
[2016-11-12 11:38] LABS: POINT-OF-CARE METER ID UU14174216
[2016-11-12 11:47] VITALS: BP 121/57
[2016-11-12 15:46] VITALS: BP 120/55
[2016-11-12 15:54] LABS: POINT-OF-CARE METER ID UU14174216
[2016-11-12 18:33] LABS: BICARBONATE 34.1 mEq/L (22-26); CARBOXY HGB 2.9 % (0-5); COMMENTS - BLOOD GASES A+C+; DEVICE HHFNC; FI02 70 %; METHEMOGLOBIN 1.4 % (0-1.5); O2 FLOW 30 L/MIN; PCO2 55 mm Hg (35-45); PO2 63 mm Hg (80-100); SITE RR; TOTAL RESP RATE 18 resp/min
[2016-11-12 20:48] VITALS: BP 121/83
[2016-11-13 00:12] VITALS: BP 133/63
[2016-11-13 03:53] LABS: MCV 103.6 FL (86-99)
[2016-11-13 03:55] VITALS: BP 131/64
[2016-11-13 04:11] LABS: CHLORIDE 100 mEq/L (99-109); POTASSIUM 5.1 mEq/L (3.7-5.4); SODIUM 136 mEq/L (136-147)
[2016-11-13 04:12] LABS: MAGNESIUM 2.2 mg/dL (1.3-2.7)
[2016-11-13 04:24] LABS: GLUCOSE 149 mg/dL (70-99)
[2016-11-13 04:26] LABS: ANION GAP 9 MEQ/L (2-14)
[2016-11-13 04:28] LABS: GFR ESTIMATE (CALCULATED) 43 mL/min/
[2016-11-13 04:29] LABS: UREA NITROGEN (BUN) 35 mg/dL (9-23)
[2016-11-13 07:00] VITALS: BP 105/63
[2016-11-13 07:52] LABS: MCH 33.7 PG (29.0-34.0); MCHC 32.6 G/DL (30.0-36.0); MCV 103.3 FL (86-99); MEAN PLAT.VOLUME 10.3 uM^3 (9.0-12.4); RBC DIS.WIDTH-CV 15.8 % (11.8-14.6); RBC DIS.WIDTH-SD 60.6 % (39-53); WHITE BLOOD COUNT 3.8 K/uL (4.1-10.2)
[2016-11-13 07:55] LABS: PLATELET COUNT 64 K/uL (156-360)
[2016-11-13 07:57] LABS: POINT-OF-CARE METER ID UU14174216
[2016-11-13 12:57] VITALS: BP 100/58
[2016-11-13 16:40] VITALS: BP 107/64
[2016-11-13 19:17] VITALS: BP 134/84
[2016-11-14] VITALS (7 sets, daily range): BP systolic 111–148; BP diastolic 53–64
[2016-11-14 05:47] LABS: MCH 32.7 PG (29.0-34.0); MCV 105.4 FL (86-99); MEAN PLAT.VOLUME 10.2 uM^3 (9.0-12.4); PLATELET COUNT 62 K/uL (156-360); RBC DIS.WIDTH-CV 15.6 % (11.8-14.6); RBC DIS.WIDTH-SD 61.2 % (39-53); RED BLOOD COUNT 2.94 M/uL (4.00-5.50); WHITE BLOOD COUNT 3.3 K/uL (4.1-10.2)
[2016-11-14 08:10] LABS: POINT-OF-CARE METER ID UU14174216
[2016-11-14 11:33] LABS: ANION GAP 7 MEQ/L (2-14); CHLORIDE 100 MEQ/L (99-109); GFR ESTIMATE (CALCULATED) 54 mL/min/; GLUCOSE 164 mg/dL (70-99); POTASSIUM 4.8 MEQ/L (3.7-5.4); SAMPLE HEMOLYSIS CHECK 0; SAMPLE ICTERIC CHECK 0; SAMPLE LIPEMIA CHECK 0; SODIUM 139 MEQ/L (136-147); UREA NITROGEN (BUN) 34 mg/dL (9-23)
[2016-11-14 11:39] LABS: POINT-OF-CARE METER ID UU13113781
[2016-11-14 16:41] LABS: POINT-OF-CARE METER ID UU13113781
[2016-11-14 20:58] LABS: POINT-OF-CARE METER ID UU14174216
[2016-11-15 00:01] VITALS: BP 112/54
[2016-11-15 04:39] VITALS: BP 136/59
[2016-11-15 05:28] LABS: EOSINOPHIL (%) 1.7 % (0-5); EOSINOPHIL COUNT 0.1 K/uL (0-0.3); HEMATOCRIT 32.8 % (38.0-50.0); IMMATURE GRANULOCYTE (%) 0.3 % (0.0-0.7); INSTRUMENT ABS NEUTROPHIL CT 2.4 K/uL; LYMPHOCYTE COUNT 0.7 K/uL (1.0-2.8); MCH 32.1 PG (29.0-34.0); MCHC 31.1 G/DL (30.0-36.0); MCV 103.1 FL (86-99); MEAN PLAT.VOLUME 9.8 uM^3 (9.0-12.4); MONOCYTE (%) 10.1 % (3-12); MONOCYTE COUNT 0.4 K/uL (0-0.8); NEUTROPHIL (%) 67.8 % (45-76); NEUTROPHIL COUNT 2.4 K/uL (1.8-6.4); PLATELET COUNT 64 K/uL (156-360); RBC DIS.WIDTH-CV 15.2 % (11.8-14.6); RED BLOOD COUNT 3.18 M/uL (4.00-5.50); WHITE BLOOD COUNT 3.6 K/uL (4.1-10.2)
[2016-11-15 05:50] LABS: ALKALINE PHOSPHATASE 53 IU/L (3-129); ANION GAP 8 MEQ/L (2-14); CHLORIDE 99 MEQ/L (99-109); GFR ESTIMATE (CALCULATED) 59 mL/min/; GLUCOSE 149 mg/dL (70-99); POTASSIUM 4.4 MEQ/L (3.7-5.4); SAMPLE HEMOLYSIS CHECK 0; SAMPLE ICTERIC CHECK 0; SAMPLE LIPEMIA CHECK 0; SODIUM 136 MEQ/L (136-147); TOTAL BILIRUBIN 0.8 MG/DL (0.0-1.0); UREA NITROGEN (BUN) 34 mg/dL (9-23)
[2016-11-15 09:00] VITALS: BP 126/66
[2016-11-15 17:15] VITALS: BP 148/67
[2016-11-15 19:17] VITALS: BP 122/59
[2016-11-15 23:17] VITALS: BP 132/62
[2016-11-16 03:06] VITALS: BP 107/58
[2016-11-16 05:47] LABS: EOSINOPHIL (%) 1.4 % (0-5); EOSINOPHIL COUNT 0.1 K/uL (0-0.3); HEMATOCRIT 31.7 % (38.0-50.0); IMMATURE GRANULOCYTE (%) 0.6 % (0.0-0.7); INSTRUMENT ABS NEUTROPHIL CT 2.4 K/uL; LYMPHOCYTE COUNT 0.8 K/uL (1.0-2.8); MCH 32.5 PG (29.0-34.0); MCHC 31.9 G/DL (30.0-36.0); MCV 101.9 FL (86-99); MEAN PLAT.VOLUME 8.9 uM^3 (9.0-12.4); MONOCYTE (%) 8.9 % (3-12); MONOCYTE COUNT 0.3 K/uL (0-0.8); NEUTROPHIL (%) 67.3 % (45-76); NEUTROPHIL COUNT 2.4 K/uL (1.8-6.4); PLATELET COUNT 65 K/uL (156-360); RBC DIS.WIDTH-CV 15.2 % (11.8-14.6); RBC DIS.WIDTH-SD 57.2 % (39-53); RED BLOOD COUNT 3.11 M/uL (4.00-5.50); WHITE BLOOD COUNT 3.5 K/uL (4.1-10.2)
[2016-11-16 06:17] LABS: ALKALINE PHOSPHATASE 55 IU/L (3-129); ANION GAP 7 MEQ/L (2-14); CHLORIDE 100 MEQ/L (99-109); GFR ESTIMATE (CALCULATED) 54 mL/min/; GLUCOSE 137 mg/dL (70-99); POTASSIUM 4.5 MEQ/L (3.7-5.4); SAMPLE HEMOLYSIS CHECK 0; SAMPLE ICTERIC CHECK 0; SAMPLE LIPEMIA CHECK 0; SODIUM 137 MEQ/L (136-147); TOTAL BILIRUBIN 0.8 MG/DL (0.0-1.0); UREA NITROGEN (BUN) 33 mg/dL (9-23)
[2016-11-16 07:11] VITALS: BP 115/51
[2016-11-16 12:02] LABS: POINT-OF-CARE USER ID NUTSLF44
[2016-11-16 12:12] VITALS: BP 118/58
[2016-11-16 15:25] VITALS: BP 110/47
[2016-11-16 17:13] LABS: POINT-OF-CARE USER ID NUTSLF44
[2016-11-16 19:30] VITALS: BP 120/57
[2016-11-16 22:31] VITALS: BP 114/55
[2016-11-17 03:49] VITALS: BP 124/56
[2016-11-17 05:48] LABS: EOSINOPHIL (%) 1.5 % (0-5); EOSINOPHIL COUNT 0.1 K/uL (0-0.3); HEMATOCRIT 30.2 % (38.0-50.0); IMMATURE GRANULOCYTE (%) 0.6 % (0.0-0.7); INSTRUMENT ABS NEUTROPHIL CT 2.3 K/uL; LYMPHOCYTE COUNT 0.7 K/uL (1.0-2.8); MCH 33.3 PG (29.0-34.0); MCHC 32.5 G/DL (30.0-36.0); MCV 102.7 FL (86-99); MEAN PLAT.VOLUME 9.1 uM^3 (9.0-12.4); MONOCYTE COUNT 0.3 K/uL (0-0.8); NEUTROPHIL (%) 69.2 % (45-76); NEUTROPHIL COUNT 2.3 K/uL (1.8-6.4); PLATELET COUNT 62 K/uL (156-360); RBC DIS.WIDTH-CV 15.1 % (11.8-14.6); RBC DIS.WIDTH-SD 55.9 % (39-53); RED BLOOD COUNT 2.94 M/uL (4.00-5.50); WHITE BLOOD COUNT 3.4 K/uL (4.1-10.2)
[2016-11-17 06:13] LABS: ALKALINE PHOSPHATASE 56 IU/L (3-129); ANION GAP 9 MEQ/L (2-14); CHLORIDE 100 MEQ/L (99-109); GFR ESTIMATE (CALCULATED) 54 mL/min/; GLUCOSE 156 mg/dL (70-99); POTASSIUM 4.2 MEQ/L (3.7-5.4); SAMPLE HEMOLYSIS CHECK 0; SAMPLE ICTERIC CHECK 0; SAMPLE LIPEMIA CHECK 0; SODIUM 138 MEQ/L (136-147); TOTAL BILIRUBIN 0.7 MG/DL (0.0-1.0); UREA NITROGEN (BUN) 40 mg/dL (9-23)
[2016-11-17 08:20] VITALS: BP 114/60
[2016-11-17 12:20] VITALS: BP 106/53
[2016-11-17 16:19] VITALS: BP 123/60
[2016-11-17 19:09] VITALS: BP 102/57
[2016-11-17 23:27] VITALS: BP 130/63
[2016-11-18 03:40] VITALS: BP 136/63
[2016-11-18 06:06] LABS: EOSINOPHIL (%) 1.6 % (0-5); EOSINOPHIL COUNT 0.1 K/uL (0-0.3); IMMATURE GRANULOCYTE (%) 0.8 % (0.0-0.7); INSTRUMENT ABS NEUTROPHIL CT 2.6 K/uL; LYMPHOCYTE COUNT 0.7 K/uL (1.0-2.8); MCH 32.7 PG (29.0-34.0); MCHC 31.9 G/DL (30.0-36.0); MCV 102.6 FL (86-99); MEAN PLAT.VOLUME 9.6 uM^3 (9.0-12.4); MONOCYTE (%) 9.3 % (3-12); MONOCYTE COUNT 0.3 K/uL (0-0.8); NEUTROPHIL (%) 69.9 % (45-76); NEUTROPHIL COUNT 2.6 K/uL (1.8-6.4); PLATELET COUNT 71 K/uL (156-360); RBC DIS.WIDTH-SD 56.8 % (39-53); RED BLOOD COUNT 3.12 M/uL (4.00-5.50); WHITE BLOOD COUNT 3.7 K/uL (4.1-10.2)
[2016-11-18 06:26] LABS: ALKALINE PHOSPHATASE 61 IU/L (3-129); ANION GAP 8 MEQ/L (2-14); ANION GAP 9 MEQ/L (2-14); CHLORIDE 99 MEQ/L (99-109); GFR ESTIMATE (CALCULATED) 59 mL/min/; GLUCOSE 143 mg/dL (70-99); GLUCOSE 144 mg/dL (70-99); POTASSIUM 3.8 MEQ/L (3.7-5.4); POTASSIUM 3.9 MEQ/L (3.7-5.4); SAMPLE HEMOLYSIS CHECK 0; SAMPLE ICTERIC CHECK 0; SAMPLE LIPEMIA CHECK 0; SODIUM 138 MEQ/L (136-147); SODIUM 139 MEQ/L (136-147); TOTAL BILIRUBIN 0.8 MG/DL (0.0-1.0); UREA NITROGEN (BUN) 41 mg/dL (9-23)
[2016-11-18 07:11] LABS: DIGOXIN < 0.3 ng/mL (0.8-2.0)
[2016-11-18 08:26] VITALS: BP 106/68
[2016-11-18 12:37] VITALS: BP 156/54
[2016-11-18 16:00] VITALS: BP 117/54
[2016-11-18 20:00] VITALS: BP 106/67
[2016-11-18 21:18] LABS: POINT-OF-CARE METER ID UU14174216; POINT-OF-CARE USER ID ENVMNS
[2016-11-18 23:55] VITALS: BP 107/57
[2016-11-19 03:32] LABS: ADD MIUA? NO; BILIRUBIN NEGATIVE; BLOOD NEGATIVE; COLOR STRAW ((YELLOW)); GLUCOSE (STRIP) NEGATIVE; KETONES NEGATIVE; LEUKOCYTES NEGATIVE; NITRITE NEGATIVE; PROTEIN (STRIP) NEGATIVE; SPECIFIC GRAVITY 1.006 (1.000-1.030); UROBILINOGEN 0.2 MG/DL (0.2-1.0)
[2016-11-19 04:00] VITALS: BP 106/56
[2016-11-19 07:39] VITALS: BP 115/57
[2016-11-19 07:57] LABS: MAGNESIUM 2.3 mg/dl (1.3-2.7)
[2016-11-19 08:08] LABS: ANION GAP 8 MEQ/L (2-14); CHLORIDE 93 MEQ/L (99-109); GFR ESTIMATE (CALCULATED) 59 mL/min/; GLUCOSE 157 mg/dL (70-99); POTASSIUM 3.8 MEQ/L (3.7-5.4); SAMPLE HEMOLYSIS CHECK 0; SAMPLE ICTERIC CHECK 0; SAMPLE LIPEMIA CHECK 0; UREA NITROGEN (BUN) 42 mg/dL (9-23)
[2016-11-19 08:09] LABS: SODIUM 132 MEQ/L (136-147)
[2016-11-19 12:31] VITALS: BP 118/69
[2016-11-19 16:42] LABS: POINT-OF-CARE METER ID UU14174216
[2016-11-19 17:08] VITALS: BP 142/65
[2016-11-19 20:00] VITALS: BP 107/53
[2016-11-20 00:16] VITALS: BP 110/59
[2016-11-20 04:25] VITALS: BP 118/72
[2016-11-20 05:49] LABS: EOSINOPHIL (%) 1.5 % (0-5); EOSINOPHIL COUNT 0.1 K/uL (0-0.3); HEMATOCRIT 31.5 % (38.0-50.0); IMMATURE GRANULOCYTE (%) 0.5 % (0.0-0.7); INSTRUMENT ABS NEUTROPHIL CT 2.7 K/uL; LYMPHOCYTE COUNT 0.8 K/uL (1.0-2.8); MCHC 32.7 G/DL (30.0-36.0); MEAN PLAT.VOLUME 9.5 uM^3 (9.0-12.4); MONOCYTE (%) 8.2 % (3-12); MONOCYTE COUNT 0.3 K/uL (0-0.8); NEUTROPHIL (%) 68.3 % (45-76); NEUTROPHIL COUNT 2.7 K/uL (1.8-6.4); PLATELET COUNT 77 K/uL (156-360); RBC DIS.WIDTH-CV 14.9 % (11.8-14.6); RBC DIS.WIDTH-SD 55.4 % (39-53); RED BLOOD COUNT 3.12 M/uL (4.00-5.50); WHITE BLOOD COUNT 3.9 K/uL (4.1-10.2)
[2016-11-20 06:05] LABS: ALKALINE PHOSPHATASE 68 IU/L (3-129); ANION GAP 7 MEQ/L (2-14); CHLORIDE 93 MEQ/L (99-109); GFR ESTIMATE (CALCULATED) 59 mL/min/; GLUCOSE 170 mg/dL (70-99); POTASSIUM 3.9 MEQ/L (3.7-5.4); SAMPLE HEMOLYSIS CHECK 0; SAMPLE ICTERIC CHECK 0; SAMPLE LIPEMIA CHECK 0; SODIUM 134 MEQ/L (136-147); TOTAL BILIRUBIN 0.8 MG/DL (0.0-1.0); UREA NITROGEN (BUN) 45 mg/dL (9-23)
[2016-11-20 07:39] VITALS: BP 117/62
[2016-11-20 07:43] LABS: POINT-OF-CARE METER ID UU13113781
[2016-11-20 10:50] LABS: POINT-OF-CARE METER ID UU13113781
[2016-11-20 11:17] VITALS: BP 107/49
[2016-11-20] MEDS ORDERED: FENTANYL1 EAC4 TD (11:59)
[2016-11-20] MEDS ORDERED: ENDOCET 5-3251 EACH PO (11:59)
[2016-11-20] MEDS ORDERED: SPIRONOLACTONE50 MG PO (11:59)
[2016-11-20] MEDS ORDERED: BUMETANIDE1 MG PO (11:59)
[2016-11-20] MEDS ORDERED: CILOSTAZOL100 MG PO (11:59)
[2016-11-20] MEDS ORDERED: METOPROLOL TAR100 MG PO (11:59)
== END 2016-11-20 13:25 | disposition home health service (06) | DRG 291 ==
LOC: EME → EDBD 11:00 → EME 11:00 → EDOF 16:20 → 4EAST 16:20
PROVIDERS: Emergency Medicine; Hospitalist; Internal Medicine; Internal Medicine Nephrology; Internal Medicine Pulmonary Disease; Physician Assistant Medical
PROC: 0W9930Z Drainage of Right Pleural Cavity with Drainage Device, Percutaneous Approach (ICD-10-PCS; principal; 2016-11-11)
PROC: 30233R1 Transfusion of Nonautologous Platelets into Peripheral Vein, Percutaneous Approach (ICD-10-PCS; 2016-11-11)
DX: I13.0 Hypertensive heart and chronic kidney disease with heart failure and stage 1 through stage 4 chronic kidney disease, or unspecified chronic kidney disease (principal); I46.9 Cardiac arrest, cause unspecified; D61.818 Other pancytopenia; D69.59 Other secondary thrombocytopenia; E03.9 Hypothyroidism, unspecified; E11.22 Type 2 diabetes mellitus with diabetic chronic kidney disease; E11.42 Type 2 diabetes mellitus with diabetic polyneuropathy; E78.5 Hyperlipidemia, unspecified; E87.5 Hyperkalemia; I25.10 Atherosclerotic heart disease of native coronary artery without angina pectoris; I25.2 Old myocardial infarction; I25.5 Ischemic cardiomyopathy; I27.2 Other secondary pulmonary hypertension; I27.81 Cor pulmonale (chronic); I48.2 Chronic atrial fibrillation; I50.43 Acute on chronic combined systolic (congestive) and diastolic (congestive) heart failure; I95.1 Orthostatic hypotension; J44.1 Chronic obstructive pulmonary disease with (acute) exacerbation; J96.21 Acute and chronic respiratory failure with hypoxia; K21.9 Gastro-esophageal reflux disease without esophagitis; F32.9 Major depressive disorder, single episode, unspecified; K59.00 Constipation, unspecified; K74.60 Unspecified cirrhosis of liver; N17.0 Acute kidney failure with tubular necrosis; N18.3 Chronic kidney disease, stage 3 (moderate); Z79.01 Long term (current) use of anticoagulants; Z79.84 Long term (current) use of oral hypoglycemic drugs; Z86.711 Personal history of pulmonary embolism; Z87.891 Personal history of nicotine dependence; Z95.1 Presence of aortocoronary bypass graft; Z95.3 Presence of xenogenic heart valve; Z99.81 Dependence on supplemental oxygen; B19.20 Unspecified viral hepatitis C without hepatic coma; R00.1 Bradycardia, unspecified; J84.10 Pulmonary fibrosis, unspecified; R33.9 Retention of urine, unspecified
CPT/HCPCS: 36600; 49083; 71010; 76705; 76770; 80048; 80053; 80069; 80162; 81003; 82150 91; 82607; 82803; 82945; 82948; 83615 91; 83735; 83880; 83986 90; 84100; 84484; 85014; 85018; 85025; 85027; 85610; 85730; 86900; 86901; 87070; 87205; 89051; 93005; 94640; 94640 76; 94799; 97530 GO; 97530 GP; 99202; 99281; 99284; C1729; J1815; J1940; J2270; J3010; P9035

== ENCOUNTER 2016-11-25 03:10 | Inpatient (IN) | payer OTHER ==
[2016-11-25] VITALS (14 sets, daily range): BP systolic 105–149; BP diastolic 39–67
[~2016-11-25] VITALS: Ht 175.3 cm; Wt 81.7 kg
[~2016-11-25 03:10] MED LIST changes: +FENTANYL1 EAC4 TD; +LASIX40 MG PO; +SPIRONOLACTONE50 MG PO
[2016-11-25 03:58] LABS: ADD MIUA? NO; BILIRUBIN NEGATIVE; BLOOD NEGATIVE; COLOR STRAW ((YELLOW)); GLUCOSE (STRIP) NEGATIVE; KETONES NEGATIVE; LEUKOCYTES NEGATIVE; NITRITE NEGATIVE; PROTEIN (STRIP) NEGATIVE; SPECIFIC GRAVITY 1.008 (1.000-1.030); UCUL ADDED? NO; UROBILINOGEN 0.2 MG/DL (0.2-1.0)
[2016-11-25 04:18] LABS: HEMATOCRIT 34.2 % (38.0-50.0); MCH 31.9 PG (29.0-34.0); MCHC 31.3 G/DL (30.0-36.0); MCV 102.1 FL (86-99); MEAN PLAT.VOLUME 8.7 uM^3 (9.0-12.4); PLATELET COUNT 107 K/uL (156-360); RBC DIS.WIDTH-CV 15.8 % (11.8-14.6); RBC DIS.WIDTH-SD 58.3 % (39-53); RED BLOOD COUNT 3.35 M/uL (4.00-5.50); WHITE BLOOD COUNT 11.2 K/uL (4.1-10.2)
[2016-11-25 04:26] LABS: INTER. NORMALIZED RATIO 1.5; PROTHROMBIN TIME 15.3 (9.2-11.2); PTT 36.2 (25-32)
[2016-11-25 04:27] LABS: CHLORIDE 100 mEq/L (99-109); POTASSIUM 4.4 mEq/L (3.7-5.4); SODIUM 136 mEq/L (136-147)
[2016-11-25 04:29] LABS: GLUCOSE 111 mg/dL (70-99)
[2016-11-25 04:30] LABS: ANION GAP 11 MEQ/L (2-14)
[2016-11-25 04:32] LABS: ALKALINE PHOSPHATASE 101 IU/L (3-129)
[2016-11-25 04:33] LABS: GFR ESTIMATE (CALCULATED) 38 mL/min/
[2016-11-25 04:34] LABS: UREA NITROGEN (BUN) 41 mg/dL (9-23)
[2016-11-25 04:36] LABS: LIPASE 17 U/L (1.0-51.0)
[2016-11-25 04:38] LABS: TROP-I INTERPRETATION NEGATIVE; TROPONIN-I 0.06 ng/mL (0.0-0.30)
[2016-11-25 11:03] LABS: METH RESISTANT S AUREUS PCR POSITIVE (NEGATIVE)
[2016-11-25 11:04] LABS: PROBE CHECK PASS
[2016-11-25 13:39] LABS: POINT-OF-CARE METER ID UU13113731
[2016-11-25] MEDS ORDERED: DURAGESIC12 MCG TD (15:25)
[2016-11-25] MEDS ORDERED: LOPRESSOR100 M1 PO (15:26)
[2016-11-25] MEDS ORDERED: PROTONIX40 MG PO (15:30)
[2016-11-25 16:05] LABS: TROP-I INTERPRETATION NEGATIVE; TROPONIN-I 0.06 ng/mL (0.0-0.30)
[2016-11-25 18:41] LABS: POINT-OF-CARE METER ID UU13113731
[2016-11-25 19:42] LABS: POINT-OF-CARE METER ID UU13113731
[2016-11-25 20:05] LABS: TROP-I INTERPRETATION NEGATIVE; TROPONIN-I 0.05 ng/mL (0.0-0.30)
[2016-11-25 23:44] LABS: POINT-OF-CARE METER ID UU13113731; POINT-OF-CARE USER ID RADDRS44
[2016-11-26] VITALS (20 sets, daily range): BP systolic 0–143; BP diastolic 0–66
[2016-11-26 01:18] LABS: TROP-I INTERPRETATION NEGATIVE; TROPONIN-I 0.05 ng/mL (0.0-0.30)
[2016-11-26 07:25] LABS: TROP-I INTERPRETATION NEGATIVE; TROPONIN-I 0.05 ng/mL (0.0-0.30)
[2016-11-26 07:28] LABS: EOSINOPHIL (%) 1.4 % (0-5); EOSINOPHIL COUNT 0.1 K/uL (0-0.3); HEMATOCRIT 33.8 % (38.0-50.0); IMMATURE GRANULOCYTE (%) 0.5 % (0.0-0.7); INSTRUMENT ABS NEUTROPHIL CT 6.6 K/uL; LYMPHOCYTE COUNT 0.9 K/uL (1.0-2.8); MCH 33.4 PG (29.0-34.0); MCHC 32.5 G/DL (30.0-36.0); MCV 102.7 FL (86-99); MEAN PLAT.VOLUME 8.6 uM^3 (9.0-12.4); MONOCYTE (%) 7.7 % (3-12); MONOCYTE COUNT 0.6 K/uL (0-0.8); NEUTROPHIL (%) 79.1 % (45-76); NEUTROPHIL COUNT 6.6 K/uL (1.8-6.4); PLAT.SUFFICIENCY DECREASED; RBC DIS.WIDTH-CV 15.9 % (11.8-14.6); RBC DIS.WIDTH-SD 60.3 % (39-53); RED BLOOD COUNT 3.29 M/uL (4.00-5.50); WHITE BLOOD COUNT 8.3 K/uL (4.1-10.2)
[2016-11-26 07:30] LABS: PLATELET COUNT 64 K/uL (156-360)
[2016-11-26 07:40] LABS: ANION GAP 9 MEQ/L (2-14); CHLORIDE 103 MEQ/L (99-109); GFR ESTIMATE (CALCULATED) 50 mL/min/; GLUCOSE 94 mg/dL (70-99); MAGNESIUM 2.1 mg/dl (1.3-2.7); POTASSIUM 3.9 MEQ/L (3.7-5.4); SAMPLE HEMOLYSIS CHECK 0; SAMPLE ICTERIC CHECK 0; SAMPLE LIPEMIA CHECK 0; SODIUM 137 MEQ/L (136-147); UREA NITROGEN (BUN) 27 mg/dL (9-23)
[2016-11-26 12:41] LABS: POINT-OF-CARE METER ID UU14208751
[2016-11-26 17:18] LABS: POINT-OF-CARE METER ID UU14208751
[2016-11-26 22:26] LABS: POINT-OF-CARE METER ID UU14162636; POINT-OF-CARE USER ID RADDRS44
[2016-11-27] VITALS (9 sets, daily range): BP systolic 0–139; BP diastolic 0–63
[2016-11-27 05:47] LABS: EOSINOPHIL (%) 1.8 % (0-5); EOSINOPHIL COUNT 0.1 K/uL (0-0.3); HEMATOCRIT 30.3 % (38.0-50.0); IMMATURE GRANULOCYTE (%) 0.7 % (0.0-0.7); IMMATURE GRANULOCYTE COUNT 0.1 K/uL; INSTRUMENT ABS NEUTROPHIL CT 6.3 K/uL; LYMPHOCYTE COUNT 0.6 K/uL (1.0-2.8); MCH 31.9 PG (29.0-34.0); MCHC 31.7 G/DL (30.0-36.0); MCV 100.7 FL (86-99); MEAN PLAT.VOLUME 8.9 uM^3 (9.0-12.4); MONOCYTE (%) 7.8 % (3-12); MONOCYTE COUNT 0.6 K/uL (0-0.8); NEUTROPHIL (%) 82.2 % (45-76); NEUTROPHIL COUNT 6.3 K/uL (1.8-6.4); PLATELET COUNT 74 K/uL (156-360); RBC DIS.WIDTH-CV 15.2 % (11.8-14.6); RBC DIS.WIDTH-SD 56.7 % (39-53); RED BLOOD COUNT 3.01 M/uL (4.00-5.50); WHITE BLOOD COUNT 7.7 K/uL (4.1-10.2)
[2016-11-27 06:10] LABS: ANION GAP 11 MEQ/L (2-14); CHLORIDE 101 MEQ/L (99-109); GFR ESTIMATE (CALCULATED) 59 mL/min/; GLUCOSE 140 mg/dL (70-99); SAMPLE HEMOLYSIS CHECK 0; SAMPLE ICTERIC CHECK 0; SAMPLE LIPEMIA CHECK 0; SODIUM 134 MEQ/L (136-147); UREA NITROGEN (BUN) 29 mg/dL (9-23)
[2016-11-27 07:35] LABS: HEMATOCRIT 31.3 % (38.0-50.0); MCH 32.6 PG (29.0-34.0); MCHC 32.3 G/DL (30.0-36.0); MEAN PLAT.VOLUME 8.8 uM^3 (9.0-12.4); PLATELET COUNT 80 K/uL (156-360); RBC DIS.WIDTH-CV 15.4 % (11.8-14.6); RBC DIS.WIDTH-SD 57.1 % (39-53); WHITE BLOOD COUNT 8.5 K/uL (4.1-10.2)
[2016-11-27 08:06] LABS: INTER. NORMALIZED RATIO 1.8; PROTHROMBIN TIME 18.3 (9.2-11.2); PTT 45.9 (25-32)
[2016-11-27 08:16] LABS: FIBRINOGEN 571 MG/DL (160-450)
[2016-11-27 08:25] LABS: ABS NEUTROPHIL COUNT 7.2; ANISOCYTOSIS 1+; BURR CELLS 1+; EOSINOPHIL ABS CT 0.1; EOSINOPHILS 0.9 % (0-5.0); INSTRUMENT ABS NEUTROPHIL CT 6.9 K/uL; LYMPHOCYTES 9.6 % (15.0-45.0); MACROCYTES 1+; METAMYELOCYTES 0.9 %; PLAT.SUFFICIENCY DECREASED; POIKILOCYTOSIS 2+; SEG.NEUTROPHILS 84.3 % (46.0-76.0); SMEAR EVALUATION YES; SMUDGE CELLS 0.9
[2016-11-27 11:56] LABS: POINT-OF-CARE METER ID UU13113748
[2016-11-27 12:30] LABS: D-DIMER LATEX NEGATIVE
[2016-11-27 12:31] LABS: SCHISTOCYTES NONE SEEN
[2016-11-27 17:42] LABS: ADD MIUA? YES; BILIRUBIN NEGATIVE; BLOOD NEGATIVE; COLOR YELLOW ((YELLOW)); GLUCOSE (STRIP) NEGATIVE; KETONES NEGATIVE; LEUKOCYTES NEGATIVE; NITRITE NEGATIVE; PROTEIN (STRIP) NEGATIVE; SPECIFIC GRAVITY 1.018 (1.000-1.030); UROBILINOGEN 0.2 MG/DL (0.2-1.0)
[2016-11-27 17:49] LABS: BACTERIA NONE SEEN /HPF; EPITHELIAL CELLS NONE SEEN /HPF; MUCUS NONE SEEN /LPF; RED BLOOD CELLS 0-5 /HPF (0-5); UCUL ADDED? NO; WHITE BLOOD CELLS 0-5 /HPF (0-5)
[2016-11-27 18:03] LABS: POINT-OF-CARE METER ID UU13113748
[2016-11-27 23:06] LABS: POINT-OF-CARE METER ID UU13113748; POINT-OF-CARE USER ID RADDRS44
[2016-11-28] VITALS (10 sets, daily range): BP systolic 103–147; BP diastolic 40–73
[2016-11-28 05:36] LABS: EOSINOPHIL (%) 2.2 % (0-5); EOSINOPHIL COUNT 0.2 K/uL (0-0.3); HEMATOCRIT 29.6 % (38.0-50.0); IMMATURE GRANULOCYTE (%) 0.6 % (0.0-0.7); IMMATURE GRANULOCYTE COUNT 0.1 K/uL; INSTRUMENT ABS NEUTROPHIL CT 6.3 K/uL; LYMPHOCYTE COUNT 0.7 K/uL (1.0-2.8); MCH 32.6 PG (29.0-34.0); MCHC 33.1 G/DL (30.0-36.0); MCV 98.3 FL (86-99); MEAN PLAT.VOLUME 8.7 uM^3 (9.0-12.4); MONOCYTE (%) 9.2 % (3-12); MONOCYTE COUNT 0.7 K/uL (0-0.8); NEUTROPHIL (%) 79.5 % (45-76); NEUTROPHIL COUNT 6.3 K/uL (1.8-6.4); PLATELET COUNT 79 K/uL (156-360); RBC DIS.WIDTH-CV 15.1 % (11.8-14.6); RBC DIS.WIDTH-SD 54.5 % (39-53); RED BLOOD COUNT 3.01 M/uL (4.00-5.50); WHITE BLOOD COUNT 7.9 K/uL (4.1-10.2)
[2016-11-28 06:04] LABS: ANION GAP 10 MEQ/L (2-14); CHLORIDE 102 MEQ/L (99-109); GFR ESTIMATE (CALCULATED) 54 mL/min/; GLUCOSE 149 mg/dL (70-99); MAGNESIUM 2.1 mg/dl (1.3-2.7); POTASSIUM 4.2 MEQ/L (3.7-5.4); SAMPLE HEMOLYSIS CHECK 0; SAMPLE ICTERIC CHECK 0; SAMPLE LIPEMIA CHECK 0; SODIUM 134 MEQ/L (136-147); UREA NITROGEN (BUN) 32 mg/dL (9-23)
[2016-11-28 09:05] LABS: POINT-OF-CARE METER ID UU14162636
[2016-11-28 13:13] LABS: POINT-OF-CARE METER ID UU14174217
[2016-11-28 17:20] LABS: POINT-OF-CARE METER ID UU14162636
[2016-11-28 22:51] LABS: POINT-OF-CARE METER ID UU14162636; POINT-OF-CARE USER ID RADDRS44
[2016-11-29] VITALS: BP 109/52
[2016-11-29 02:00] VITALS: BP 97/56
[2016-11-29 04:00] VITALS: BP 122/56
[2016-11-29 05:40] LABS: EOSINOPHIL (%) 2.4 % (0-5); EOSINOPHIL COUNT 0.2 K/uL (0-0.3); HEMATOCRIT 27.8 % (38.0-50.0); IMMATURE GRANULOCYTE (%) 0.5 % (0.0-0.7); INSTRUMENT ABS NEUTROPHIL CT 4.8 K/uL; LYMPHOCYTE COUNT 0.5 K/uL (1.0-2.8); MCH 30.8 PG (29.0-34.0); MCHC 31.7 G/DL (30.0-36.0); MCV 97.2 FL (86-99); MONOCYTE (%) 9.3 % (3-12); MONOCYTE COUNT 0.6 K/uL (0-0.8); NEUTROPHIL COUNT 4.8 K/uL (1.8-6.4); PLATELET COUNT 87 K/uL (156-360); RBC DIS.WIDTH-CV 15.1 % (11.8-14.6); RBC DIS.WIDTH-SD 54.4 % (39-53); RED BLOOD COUNT 2.86 M/uL (4.00-5.50); WHITE BLOOD COUNT 6.1 K/uL (4.1-10.2)
[2016-11-29 06:10] LABS: ANION GAP 10 MEQ/L (2-14); CHLORIDE 101 MEQ/L (99-109); GFR ESTIMATE (CALCULATED) 54 mL/min/; GLUCOSE 149 mg/dL (70-99); MAGNESIUM 2.2 mg/dl (1.3-2.7); POTASSIUM 4.2 MEQ/L (3.7-5.4); SAMPLE HEMOLYSIS CHECK 0; SAMPLE ICTERIC CHECK 0; SAMPLE LIPEMIA CHECK 0; SODIUM 133 MEQ/L (136-147); UREA NITROGEN (BUN) 37 mg/dL (9-23)
[2016-11-29 08:00] VITALS: BP 111/58
[2016-11-29 12:00] VITALS: BP 117/52
[2016-11-29 16:00] VITALS: BP 102/68
[2016-11-30 05:49] LABS: EOSINOPHIL (%) 3.3 % (0-5); EOSINOPHIL COUNT 0.2 K/uL (0-0.3); HEMATOCRIT 27.3 % (38.0-50.0); IMMATURE GRANULOCYTE (%) 0.6 % (0.0-0.7); INSTRUMENT ABS NEUTROPHIL CT 3.9 K/uL; LYMPHOCYTE COUNT 0.6 K/uL (1.0-2.8); MCH 31.4 PG (29.0-34.0); MCHC 32.2 G/DL (30.0-36.0); MCV 97.5 FL (86-99); MEAN PLAT.VOLUME 8.9 uM^3 (9.0-12.4); MONOCYTE (%) 9.5 % (3-12); MONOCYTE COUNT 0.5 K/uL (0-0.8); NEUTROPHIL (%) 75.5 % (45-76); NEUTROPHIL COUNT 3.9 K/uL (1.8-6.4); PLATELET COUNT 87 K/uL (156-360); RBC DIS.WIDTH-CV 15.1 % (11.8-14.6); RBC DIS.WIDTH-SD 54.7 % (39-53); WHITE BLOOD COUNT 5.2 K/uL (4.1-10.2)
[2016-11-30 06:06] LABS: ANION GAP 8 MEQ/L (2-14); CHLORIDE 101 MEQ/L (99-109); MAGNESIUM 2.3 mg/dl (1.3-2.7); POTASSIUM 4.2 MEQ/L (3.7-5.4); SAMPLE HEMOLYSIS CHECK 0; SAMPLE ICTERIC CHECK 0; SAMPLE LIPEMIA CHECK 0; SODIUM 132 MEQ/L (136-147)
[2016-11-30 06:12] LABS: GFR ESTIMATE (CALCULATED) 59 mL/min/; GLUCOSE 142 mg/dL (70-99); UREA NITROGEN (BUN) 40 mg/dL (9-23)
[2016-11-30 08:00] VITALS: BP 109/44
[2016-11-30 12:00] VITALS: BP 128/56
[2016-11-30 17:34] VITALS: BP 121/59
[2016-11-30 19:00] VITALS: BP 118/58
[2016-11-30 23:00] VITALS: BP 145/67
[2016-12-01 03:15] VITALS: BP 111/60
[2016-12-01 05:30] LABS: EOSINOPHIL (%) 2.5 % (0-5); EOSINOPHIL COUNT 0.2 K/uL (0-0.3); HEMATOCRIT 27.1 % (38.0-50.0); IMMATURE GRANULOCYTE (%) 0.5 % (0.0-0.7); INSTRUMENT ABS NEUTROPHIL CT 4.9 K/uL; LYMPHOCYTE COUNT 0.7 K/uL (1.0-2.8); MCH 32.1 PG (29.0-34.0); MCHC 33.2 G/DL (30.0-36.0); MCV 96.8 FL (86-99); MEAN PLAT.VOLUME 9.2 uM^3 (9.0-12.4); MONOCYTE (%) 9.4 % (3-12); MONOCYTE COUNT 0.6 K/uL (0-0.8); NEUTROPHIL COUNT 4.9 K/uL (1.8-6.4); PLATELET COUNT 111 K/uL (156-360); RBC DIS.WIDTH-CV 15.3 % (11.8-14.6); RBC DIS.WIDTH-SD 54.5 % (39-53); WHITE BLOOD COUNT 6.5 K/uL (4.1-10.2)
[2016-12-01 05:57] LABS: ANION GAP 10 MEQ/L (2-14); CHLORIDE 102 MEQ/L (99-109); GFR ESTIMATE (CALCULATED) > 59 mL/min/; GLUCOSE 134 mg/dL (70-99); MAGNESIUM 2.3 mg/dl (1.3-2.7); POTASSIUM 4.3 MEQ/L (3.7-5.4); SAMPLE HEMOLYSIS CHECK 0; SAMPLE ICTERIC CHECK 0; SAMPLE LIPEMIA CHECK 0; SODIUM 132 MEQ/L (136-147); UREA NITROGEN (BUN) 38 mg/dL (9-23)
[2016-12-01 07:50] LABS: POINT-OF-CARE METER ID UU13113698
[2016-12-01 09:09] VITALS: BP 127/66
[2016-12-01 12:32] VITALS: BP 114/54
[2016-12-01 17:22] VITALS: BP 108/54
[2016-12-01 19:15] VITALS: BP 134/59
[2016-12-01 21:54] LABS: POINT-OF-CARE METER ID UU13113698
[2016-12-02 00:05] VITALS: BP 135/64
[2016-12-02 04:00] VITALS: BP 125/56
[2016-12-02 06:06] LABS: EOSINOPHIL (%) 2.3 % (0-5); EOSINOPHIL COUNT 0.1 K/uL (0-0.3); HEMATOCRIT 26.3 % (38.0-50.0); IMMATURE GRANULOCYTE (%) 0.8 % (0.0-0.7); INSTRUMENT ABS NEUTROPHIL CT 3.8 K/uL; LYMPHOCYTE COUNT 0.7 K/uL (1.0-2.8); MCH 31.1 PG (29.0-34.0); MCHC 32.3 G/DL (30.0-36.0); MCV 96.3 FL (86-99); MEAN PLAT.VOLUME 8.9 uM^3 (9.0-12.4); MONOCYTE (%) 9.6 % (3-12); MONOCYTE COUNT 0.5 K/uL (0-0.8); NEUTROPHIL (%) 73.6 % (45-76); NEUTROPHIL COUNT 3.8 K/uL (1.8-6.4); PLATELET COUNT 108 K/uL (156-360); RBC DIS.WIDTH-CV 15.3 % (11.8-14.6); RBC DIS.WIDTH-SD 54.2 % (39-53); RED BLOOD COUNT 2.73 M/uL (4.00-5.50); WHITE BLOOD COUNT 5.2 K/uL (4.1-10.2)
[2016-12-02 06:30] LABS: ANION GAP 10 MEQ/L (2-14); CHLORIDE 103 MEQ/L (99-109); GFR ESTIMATE (CALCULATED) > 59 mL/min/; GLUCOSE 129 mg/dL (70-99); MAGNESIUM 2.2 mg/dl (1.3-2.7); POTASSIUM 4.5 MEQ/L (3.7-5.4); SAMPLE HEMOLYSIS CHECK 0; SAMPLE ICTERIC CHECK 0; SAMPLE LIPEMIA CHECK 0; SODIUM 134 MEQ/L (136-147); UREA NITROGEN (BUN) 34 mg/dL (9-23)
[2016-12-02 07:55] LABS: POINT-OF-CARE METER ID UU13113781
[2016-12-02 08:00] VITALS: BP 148/67
[2016-12-02 12:13] LABS: GFR ESTIMATE (CALCULATED) > 59 mL/min/; VANCOMYCIN, TROUGH 21.3 MCG/ML (10-20)
[2016-12-02 16:45] VITALS: BP 129/60
[2016-12-02 19:26] VITALS: BP 155/70
[2016-12-02 20:50] LABS: POINT-OF-CARE USER ID ENVMNS
[2016-12-03] VITALS (7 sets, daily range): BP systolic 104–134; BP diastolic 54–66
[2016-12-03 06:48] LABS: EOSINOPHIL (%) 1.8 % (0-5); EOSINOPHIL COUNT 0.1 K/uL (0-0.3); HEMATOCRIT 27.4 % (38.0-50.0); IMMATURE GRANULOCYTE (%) 1.3 % (0.0-0.7); IMMATURE GRANULOCYTE COUNT 0.1 K/uL; INSTRUMENT ABS NEUTROPHIL CT 5.7 K/uL; LYMPHOCYTE COUNT 0.7 K/uL (1.0-2.8); MCH 30.2 PG (29.0-34.0); MCHC 31.8 G/DL (30.0-36.0); MCV 95.1 FL (86-99); MONOCYTE (%) 7.9 % (3-12); MONOCYTE COUNT 0.6 K/uL (0-0.8); NEUTROPHIL (%) 79.2 % (45-76); NEUTROPHIL COUNT 5.7 K/uL (1.8-6.4); PLATELET COUNT 135 K/uL (156-360); RBC DIS.WIDTH-CV 15.5 % (11.8-14.6); RBC DIS.WIDTH-SD 54.1 % (39-53); RED BLOOD COUNT 2.88 M/uL (4.00-5.50); WHITE BLOOD COUNT 7.1 K/uL (4.1-10.2)
[2016-12-03 07:11] LABS: ANION GAP 9 MEQ/L (2-14); CHLORIDE 102 MEQ/L (99-109); GFR ESTIMATE (CALCULATED) > 59 mL/min/; GLUCOSE 146 mg/dL (70-99); MAGNESIUM 2.3 mg/dl (1.3-2.7); POTASSIUM 4.6 MEQ/L (3.7-5.4); SAMPLE HEMOLYSIS CHECK 0; SAMPLE ICTERIC CHECK 0; SAMPLE LIPEMIA CHECK 0; SODIUM 133 MEQ/L (136-147); UREA NITROGEN (BUN) 31 mg/dL (9-23)
[2016-12-03 21:26] LABS: POINT-OF-CARE METER ID UU13113781
[2016-12-04 03:28] VITALS: BP 106/58
[2016-12-04 06:05] LABS: EOSINOPHIL (%) 2.9 % (0-5); EOSINOPHIL COUNT 0.2 K/uL (0-0.3); HEMATOCRIT 27.6 % (38.0-50.0); IMMATURE GRANULOCYTE (%) 1.2 % (0.0-0.7); IMMATURE GRANULOCYTE COUNT 0.1 K/uL; INSTRUMENT ABS NEUTROPHIL CT 5.1 K/uL; LYMPHOCYTE COUNT 0.8 K/uL (1.0-2.8); MCH 31.3 PG (29.0-34.0); MCHC 32.6 G/DL (30.0-36.0); MCV 95.8 FL (86-99); MEAN PLAT.VOLUME 8.8 uM^3 (9.0-12.4); MONOCYTE (%) 6.8 % (3-12); MONOCYTE COUNT 0.5 K/uL (0-0.8); NEUTROPHIL (%) 76.3 % (45-76); NEUTROPHIL COUNT 5.1 K/uL (1.8-6.4); PLATELET COUNT 136 K/uL (156-360); RBC DIS.WIDTH-CV 15.5 % (11.8-14.6); RBC DIS.WIDTH-SD 54.4 % (39-53); RED BLOOD COUNT 2.88 M/uL (4.00-5.50); WHITE BLOOD COUNT 6.7 K/uL (4.1-10.2)
[2016-12-04 06:28] LABS: ANION GAP 8 MEQ/L (2-14); CHLORIDE 102 MEQ/L (99-109); GFR ESTIMATE (CALCULATED) > 59 mL/min/; GLUCOSE 133 mg/dL (70-99); MAGNESIUM 2.4 mg/dl (1.3-2.7); POTASSIUM 4.7 MEQ/L (3.7-5.4); SAMPLE HEMOLYSIS CHECK 0; SAMPLE ICTERIC CHECK 0; SAMPLE LIPEMIA CHECK 0; SODIUM 132 MEQ/L (136-147); UREA NITROGEN (BUN) 33 mg/dL (9-23)
[2016-12-04 08:18] LABS: POINT-OF-CARE METER ID UU13113698
[2016-12-04 08:51] VITALS: BP 139/60
[2016-12-04 10:29] LABS: GFR ESTIMATE (CALCULATED) > 59 mL/min/
[2016-12-04 10:55] VITALS: BP 120/58
[2016-12-04 15:55] VITALS: BP 138/61
[2016-12-04 17:03] LABS: POINT-OF-CARE METER ID UU13113781
[2016-12-04 18:53] VITALS: BP 117/61
[2016-12-05] VITALS: BP 102/64
[2016-12-05 04:49] VITALS: BP 118/64; BP 98/64
[2016-12-05 05:14] VITALS: BP 124/72
[2016-12-05 06:22] LABS: ANION GAP 11 MEQ/L (2-14); CHLORIDE 98 MEQ/L (99-109); GFR ESTIMATE (CALCULATED) > 59 mL/min/; MAGNESIUM 2.5 mg/dl (1.3-2.7); POTASSIUM 5.5 MEQ/L (3.7-5.4); SAMPLE HEMOLYSIS CHECK 0; SAMPLE ICTERIC CHECK 0; SAMPLE LIPEMIA CHECK 0; SODIUM 129 MEQ/L (136-147); UREA NITROGEN (BUN) 37 mg/dL (9-23)
[2016-12-05 06:24] LABS: GLUCOSE 244 mg/dL (70-99)
[2016-12-05 06:25] LABS: EOSINOPHIL (%) 0 % (0-5); HEMATOCRIT 31.1 % (38.0-50.0); IMMATURE GRANULOCYTE (%) 0.7 % (0.0-0.7); IMMATURE GRANULOCYTE COUNT 0.1 K/uL; INSTRUMENT ABS NEUTROPHIL CT 7.6 K/uL; LYMPHOCYTE COUNT 0.6 K/uL (1.0-2.8); MCH 29.6 PG (29.0-34.0); MCHC 30.9 G/DL (30.0-36.0); MEAN PLAT.VOLUME 9.1 uM^3 (9.0-12.4); MONOCYTE (%) 1.9 % (3-12); MONOCYTE COUNT 0.2 K/uL (0-0.8); NEUTROPHIL (%) 90.2 % (45-76); NEUTROPHIL COUNT 7.6 K/uL (1.8-6.4); RBC DIS.WIDTH-CV 15.3 % (11.8-14.6); RBC DIS.WIDTH-SD 54.7 % (39-53); RED BLOOD COUNT 3.24 M/uL (4.00-5.50); WHITE BLOOD COUNT 8.5 K/uL (4.1-10.2)
[2016-12-05 06:57] LABS: PLATELET COUNT 195 K/uL (156-360)
[2016-12-05 08:27] LABS: POINT-OF-CARE METER ID UU13113698
[2016-12-05 08:45] VITALS: BP 129/56
[2016-12-05 11:13] VITALS: BP 126/59
[2016-12-05 11:21] LABS: POINT-OF-CARE METER ID UU13113698
[2016-12-05] MEDS ORDERED: ZYVOX600 MG PO (12:54)
[2016-12-05] MEDS ORDERED: PREDNISONE5 MG PO (12:55)
[2016-12-05] MEDS ORDERED: LOPRESSOR25 MG PO (12:55)
[2016-12-05 15:31] VITALS: BP 126/60
== END 2016-12-05 17:25 | disposition home health service (06) | DRG 871 ==
LOC: EME → EDBD 03:10 → 4WEST 06:50 → EDOF 06:50 → 4WEST 09:13 → 4EAST 11-30 16:22
PROVIDERS: Emergency Medicine; Hospitalist; Internal Medicine; Internal Medicine Nephrology; Obstetrics & Gynecology; Student in an Organized Health Care Education/Training Program
PROC: 05HM33Z Insertion of Infusion Device into Right Internal Jugular Vein, Percutaneous Approach (ICD-10-PCS; principal; 2016-11-25)
PROC: 0W9930Z Drainage of Right Pleural Cavity with Drainage Device, Percutaneous Approach (ICD-10-PCS; 2016-11-30)
DX: A41.9 Sepsis, unspecified organism (principal); J15.212 Pneumonia due to Methicillin resistant Staphylococcus aureus; J96.11 Chronic respiratory failure with hypoxia; R57.9 Shock, unspecified; J44.0 Chronic obstructive pulmonary disease with (acute) lower respiratory infection; J44.1 Chronic obstructive pulmonary disease with (acute) exacerbation; E11.22 Type 2 diabetes mellitus with diabetic chronic kidney disease; I25.810 Atherosclerosis of coronary artery bypass graft(s) without angina pectoris; I12.9 Hypertensive chronic kidney disease with stage 1 through stage 4 chronic kidney disease, or unspecified chronic kidney disease; I50.20 Unspecified systolic (congestive) heart failure; I25.5 Ischemic cardiomyopathy; I48.2 Chronic atrial fibrillation; R04.0 Epistaxis; D64.9 Anemia, unspecified; Z86.74 Personal history of sudden cardiac arrest; E86.1 Hypovolemia; N18.9 Chronic kidney disease, unspecified; I27.2 Other secondary pulmonary hypertension; D69.6 Thrombocytopenia, unspecified; E78.5 Hyperlipidemia, unspecified; B95.62 Methicillin resistant Staphylococcus aureus infection as the cause of diseases classified elsewhere; K21.9 Gastro-esophageal reflux disease without esophagitis; K74.60 Unspecified cirrhosis of liver; B19.20 Unspecified viral hepatitis C without hepatic coma; J98.11 Atelectasis; I35.0 Nonrheumatic aortic (valve) stenosis; J84.112 Idiopathic pulmonary fibrosis; E03.9 Hypothyroidism, unspecified; N50.89 Other specified disorders of the male genital organs; G47.00 Insomnia, unspecified; I25.2 Old myocardial infarction; Z95.1 Presence of aortocoronary bypass graft; Z95.3 Presence of xenogenic heart valve; Z95.2 Presence of prosthetic heart valve
CPT/HCPCS: 49405; 71010; 74176; 80048; 80048 91; 80053; 80202; 81003; 82565; 82948; 83605; 83690; 83735; 83880; 84100; 84439; 84443; 84484; 85007; 85025; 85025 91; 85027; 85060; 85378; 85384; 85610; 85730; 87040; 87070; 87075; 87077; 87147; 87186; 87205; 87641; 93005; 94010; 94640; 94640 76; 94667; 94668; 94760; 94799; 97530 GP; 99202; 99281; 99285; C1729; C1769; J0696; J1815; J1940; J1956; J2270; J2543; J2920; J3010; J3370; J7040; J7050; P9045